=== PATIENT | female | born 1930 | race Caucasian/White ===

== ENCOUNTER 2019-09-05 18:36 | Inpatient (IN) | payer MEDICARE, BC ==
[2019-09-05] VITALS (9 sets, daily range): BP systolic 134–178; BP diastolic 62–83
[~2019-09-05] VITALS: Ht 170.2 cm; Wt 79.4 kg
[~2019-09-05 18:36] MED LIST: AMLO10TA8 PO; APIX5TAB PO; ASCO100019 PO; ASPI-886 PO; CALC500T54 PO; CHOL40003 PO; CLOP75TA PO; METO50TA6 PO; POTASSIUM; TRIA1CAP3 PO; VITA400T6 PO
[2019-09-05] MEDS ORDERED: LACTULOSE 20 GM/30 ML SOLUTION. PO PRN (20:45)
[2019-09-05] MEDS ORDERED: fentaNYL PF VIAL 100 MCG/2 ML VIAL IV PRN ×2 (20:45)
[2019-09-05] MEDS ORDERED: BISACODYL 10 MG SUPP.RECT. PR PRN (20:45)
[2019-09-05] MEDS ORDERED: POLYVINYL ALCOHOL 1.4% OPHTH SOLUTION 15ML BOTTLE. OU PRN (20:45)
[2019-09-05] MEDS ORDERED: ONDANSETRON PF 4 MG/2 ML VIAL. IVP PRN (20:45)
[2019-09-05] MEDS ORDERED: 0.9 % SODIUM CHLORIDE 10 ML DISP.SYRIN. IV PRN (20:45)
[2019-09-05] MEDS: DOCUSATE 100 MG/10 ML SOLUTION. NG SCH (21:00)
[2019-09-05] MEDS: FAMOTIDINE 20 MG TABLET. NG SCH (21:42)
[2019-09-05] MEDS: CHLORHEXIDINE 0.12% 15 ML MOUTHWASH. MM SCH (21:43)
[2019-09-05] MEDS: HEPARIN for SUB-Q USE 5,000 UNIT/ML VIAL. SQ SCH (21:44)
[2019-09-05 21:50] LABS: BASE EXCESS ABG 3 mmol/L (-3-3); HCO3 ABG 27 mmol/L (21-28); PCO2 ABG 40 mmHg (35-46); PO2 ABG 302 mmHg (65-108); SAT O2 ABG 99 % (92-99)
[2019-09-05 21:51] LABS: FIO2 ABG 100
--- NOTE | 2019-09-05 22:51 | NUR ---
Patient transferred from [facility]. For Resp. Failure. patient was getting gas at local gas station. Became SOA- called EMS- upon arrival to ER patietn became unresponsive. Patient intubated and transferred to [place] ER. Accept patient in transfer. On no sedation.
[2019-09-06] VITALS (23 sets, daily range): BP systolic 87–173; BP diastolic 39–90
[2019-09-06] MEDS: PROPOFOL 100 ML IV PRN ×2 (01:25→08:40)
[2019-09-06] MEDS: HEPARIN for SUB-Q USE 5,000 UNIT/ML VIAL. SQ SCH ×3 (05:31→21:20)
[2019-09-06 06:01] LABS: BASO # 0.1 x10^3/uL (0.0-0.2); BASO % 0 % (0-3); EOS % 0 % (0-3); HEMATOCRIT 38.2 % (36.0-47.0); HEMOGLOBIN 12.8 g/dL (12.0-15.5); LYMPH # 2.2 x10^3/uL (1.0-4.8); LYMPH % 15 % (24-48); MEAN CORPUSCULAR HEMOGLOBIN 29 pg (25-35); MEAN CORPUSCULAR HGB CONC 33 g/dL (31-37); MEAN CORPUSCULAR VOLUME 88 fL (79-100); MONO # 1.1 x10^3/uL (0.0-1.1); MONO % 7 % (0-9); NEUT # 11.2 x10^3/uL (1.8-7.7); NEUT % 77 % (31-73); PLATELET COUNT 210 x10^3/uL (140-400); RED BLOOD COUNT 4.37 x10^6/uL (3.50-5.40); RED CELL DISTRIBUTION WIDTH 12.7 % (11.5-14.5); WHITE BLOOD COUNT 14.5 x10^3/uL (4.0-11.0)
[2019-09-06 06:24] LABS: ALBUMIN/GLOBULIN RATIO 0.8 (1.0-1.7); CALCIUM 8.6 mg/dL (8.5-10.1); CREATININE 1.9 mg/dL (0.6-1.0); GFR 24.9; POTASSIUM 3.6 mmol/L (3.5-5.1); TOTAL BILIRUBIN 0.8 mg/dL (0.2-1.0); TOTAL PROTEIN 6.6 g/dL (6.4-8.2)
[2019-09-06] MEDS: ELECTROLYTE (ICU) PROTOCOL. MC SCH (07:20)
[2019-09-06 08:24] LABS: BASE EXCESS ABG 7 mmol/L (-3-3); HCO3 ABG 28 mmol/L (21-28); PCO2 ABG 27 mmHg (35-46); PO2 ABG 67 mmHg (65-108); SAT O2 ABG 95 % (92-99)
[2019-09-06] MEDS: DOCUSATE 100 MG/10 ML SOLUTION. NG SCH ×2 (08:39→20:59)
[2019-09-06] MEDS: CHLORHEXIDINE 0.12% 15 ML MOUTHWASH. MM SCH (08:39)
[2019-09-06] MEDS: FAMOTIDINE 20 MG TABLET. NG SCH ×2 (08:39→20:59)
[2019-09-06 08:45] LABS: FIO2 ABG 40
--- NOTE | 2019-09-06 09:25 | PDOC1 ---
History and Physical Date of Admission Date of Admission DATE: 09/06/19 TIME: 09:19 History of Present Illness History of Present Illness MS. Edwards is an 88-year-old female patient, who was admitted with increasing shortness of breath, dyspnea and distres and was intubated last night in the ER at [facility] she recently underwent left heart catheterization for NSTEMI, and last night had syptoms of exacerbation of CHF She has severe 3-vessel coronary artery disease and atrial fibrillation. Past Medical History Cardiovascular: CAD, CHF, HTN Family History Family History: No Significant Current Medications Current Medications Current Medications Fentanyl Citrate 30 ml @ 0 mls/hr CONT PRN IV SEE PROTOCOL Last administered on 09/05/19at 21:36; Start 09/05/19 at 21:00 Propofol 100 ml @ 0 mls/hr CONT PRN IV SEE PROTOCOL Last administered on 09/06/19at 08:40; Start 09/05/19 at 21:00 Fentanyl Citrate (Fentanyl 2ml Vial) 25 mcg PRN Q1HR PRN IV SEE COMMENTS; Start 09/05/19 at 20:45 Fentanyl Citrate (Fentanyl 2ml Vial) 50 mcg PRN Q1HR PRN IV SEE COMMENTS; Start 09/05/19 at 20:45 Chlorhexidine Gluconate (Peridex) 15 ml BID MM Last administered on 09/06/19at 08:39; Start 09/05/19 at 21:00 Artificial Tears (Artificial Tears) 1 drop PRN Q1HR PRN OU DRY EYE; Start 09/05/19 at 20:45 Famotidine (Pepcid) 20 mg BID NG Last administered on 09/06/19at 08:39; Start 09/05/19 at 21:00 Olanzapine (ZyPREXA ZYDIS) 5 mg PRN Q4HRS PRN PO AGITATION, DELIRIUM; Start 09/05/19 at 20:45 Docusate Sodium (Colace Solution) 100 mg BID NG ; Start 09/05/19 at 21:00 Bisacodyl (Dulcolax Supp) 10 mg PRN DAILY PRN TN CONSTIPATION; Start 09/05/19 at 20:45 Heparin Sodium (Porcine) (Heparin Sodium) 5,000 unit Q8HRS SQ Last administered on 09/06/19at 05:31; Start 09/05/19 at 22:00 Ondansetron HCl (Zofran) 4 mg PRN Q6HRS PRN IVP NAUSEA/VOMITING; Start 09/05/19 at 20:45 Info (Icu Electrolyte Protocol) 1 ea DAILY MC ; Start 09/06/19 at 09:00 Sodium Chloride (Normal Saline Flush) 3 ml QSHIFT PRN IV AFTER MEDS AND BLOOD DRAWS; Start 09/05/19 at 20:45 Lactulose (Lactulose) 20 gm PRN Q12HR PRN PO CONSTIPATION; Start 09/05/19 at 20:45 Active Scripts Active Clopidogrel (Clopidogrel Bisulfate) 75 Mg Tablet 1 Tab PO DAILY 30 Days Amlodipine Besylate 10 Mg Tablet 10 Mg PO DAILY 30 Days Metoprolol Tartrate 50 Mg Tablet 1 Tab PO BID 30 Days Reported [Potassium] 550 Mg DAILY Vitamin E (Vitamin E Mixed) 400 Unit Tablet 1 Tab PO DAILY 30 Days Triamterene-Hctz 37.5-25 Mg Cp (Triamterene/Hydrochlorothiazid) 1 Each Capsule 1 Cap PO DAILY Aspirin Ec (Aspirin) 81 Mg Tablet.dr 2 Tab PO BID Calcium (Calcium Carbonate) 500 Mg Tab.chew 500 Mg PO DAILY Vitamin C (Ascorbic Acid) 1,000 Mg Tablet 1,000 Mg PO DAILY Vitamin D3 (Cholecalciferol (Vitamin D3)) 4,000 Unit Capsule 0.5 Cap PO DAILY 30 Days Allergies Allergies: Coded Allergies: morphine (Verified Allergy, Intermediate, 09/06/19) codeine (Verified Adverse Reaction, Intermediate, Nausea, 04/21/19) ROS Review of System pt intubated, sedated, in isolation for COVID rule out Physical Exam Physical Exam PHYSICAL EXAMINATION: intubated, sedated GENERAL: No jugular venous distention. No limb edema. HEAD, EYES, EARS, NOSE AND THROAT: Showed normocephalic, atraumatic. NECK: Supple. HEART: reg, no pulse deficit, rate 72 No gallop or murmur. CHEST: Clear to auscultation. No crepitation or rhonchi. ABDOMEN: Distended, soft, nontender. NEUROLOGIC: sedated Vitals Vitals Vital Signs Date Time Temp Pulse Resp B/P (MAP) Pulse Ox O2 Delivery O2 Flow Rate FiO2 09/06/19 09:00 74 16 141/66 (91) 99 Ventilator 09/06/19 08:00 99.5 99.5 09/06/19 04:00 100.0 Labs Labs Laboratory Tests Test 09/05/19 21:37 09/06/19 05:30 09/06/19 07:30 O2 Saturation 99 % (92-99) 95 % (92-99) Arterial Blood pH 7.45 (7.35-7.45) 7.62 (7.35-7.45) Arterial Blood pCO2 at Patient Temp 40 mmHg (35-46) 27 mmHg (35-46) Arterial Blood pO2 at Patient Temp 302 mmHg (65-108) 67 mmHg (65-108) Arterial Blood HCO3 27 mmol/L (21-28) 28 mmol/L (21-28) Arterial Blood Base Excess 3 mmol/L (-3-3) 7 mmol/L (-3-3) FiO2 100 40 White Blood Count 14.5 x10^3/uL (4.0-11.0) Red Blood Count 4.37 x10^6/uL (3.50-5.40) Hemoglobin 12.8 g/dL (12.0-15.5) Hematocrit 38.2 % (36.0-47.0) Mean Corpuscular Volume 88 fL (79-100) Mean Corpuscular Hemoglobin 29 pg (25-35) Mean Corpuscular Hemoglobin Concent 33 g/dL (31-37) Red Cell Distribution Width 12.7 % (11.5-14.5) Platelet Count 210 x10^3/uL (140-400) Neutrophils (%) (Auto) 77 % (31-73) Lymphocytes (%) (Auto) 15 % (24-48) Monocytes (%) (Auto) 7 % (0-9) Eosinophils (%) (Auto) 0 % (0-3) Basophils (%) (Auto) 0 % (0-3) Neutrophils # (Auto) 11.2 x10^3/uL (1.8-7.7) Lymphocytes # (Auto) 2.2 x10^3/uL (1.0-4.8) Monocytes # (Auto) 1.1 x10^3/uL (0.0-1.1) Eosinophils # (Auto) 0.0 x10^3/uL (0.0-0.7) Basophils # (Auto) 0.1 x10^3/uL (0.0-0.2) Sodium Level 140 mmol/L (136-145) Potassium Level 3.6 mmol/L (3.5-5.1) Chloride Level 100 mmol/L (98-107) Carbon Dioxide Level 31 mmol/L (21-32) Anion Gap 9 (6-14) Blood Urea Nitrogen 32 mg/dL (7-20) Creatinine 1.9 mg/dL (0.6-1.0) Estimated GFR (Cockcroft-Gault) 24.9 BUN/Creatinine Ratio 17 (6-20) Glucose Level 148 mg/dL (70-99) Calcium Level 8.6 mg/dL (8.5-10.1) Total Bilirubin 0.8 mg/dL (0.2-1.0) Aspartate Amino Transf (AST/SGOT) 86 U/L (15-37) Alanine Aminotransferase (ALT/SGPT) 24 U/L (14-59) Alkaline Phosphatase 40 U/L (46-116) Total Protein 6.6 g/dL (6.4-8.2) Albumin 3.0 g/dL (3.4-5.0) Albumin/Globulin Ratio 0.8 (1.0-1.7) Laboratory Tests Test 09/05/19 21:37 09/06/19 05:30 09/06/19 07:30 O2 Saturation 99 % (92-99) 95 % (92-99) Arterial Blood pH 7.45 (7.35-7.45) 7.62 (7.35-7.45) Arterial Blood pCO2 at Patient Temp 40 mmHg (35-46) 27 mmHg (35-46) Arterial Blood pO2 at Patient Temp 302 mmHg (65-108) 67 mmHg (65-108) Arterial Blood HCO3 27 mmol/L (21-28) 28 mmol/L (21-28) Arterial Blood Base Excess 3 mmol/L (-3-3) 7 mmol/L (-3-3) FiO2 100 40 White Blood Count 14.5 x10^3/uL (4.0-11.0) Red Blood Count 4.37 x10^6/uL (3.50-5.40) Hemoglobin 12.8 g/dL (12.0-15.5) Hematocrit 38.2 % (36.0-47.0) Mean Corpuscular Volume 88 fL (79-100) Mean Corpuscular Hemoglobin 29 pg (25-35) Mean Corpuscular Hemoglobin Concent 33 g/dL (31-37) Red Cell Distribution Width 12.7 % (11.5-14.5) Platelet Count 210 x10^3/uL (140-400) Neutrophils (%) (Auto) 77 % (31-73) Lymphocytes (%) (Auto) 15 % (24-48) Monocytes (%) (Auto) 7 % (0-9) Eosinophils (%) (Auto) 0 % (0-3) Basophils (%) (Auto) 0 % (0-3) Neutrophils # (Auto) 11.2 x10^3/uL (1.8-7.7) Lymphocytes # (Auto) 2.2 x10^3/uL (1.0-4.8) Monocytes # (Auto) 1.1 x10^3/uL (0.0-1.1) Eosinophils # (Auto) 0.0 x10^3/uL (0.0-0.7) Basophils # (Auto) 0.1 x10^3/uL (0.0-0.2) Sodium Level 140 mmol/L (136-145) Potassium Level 3.6 mmol/L (3.5-5.1) Chloride Level 100 mmol/L (98-107) Carbon Dioxide Level 31 mmol/L (21-32) Anion Gap 9 (6-14) Blood Urea Nitrogen 32 mg/dL (7-20) Creatinine 1.9 mg/dL (0.6-1.0) Estimated GFR (Cockcroft-Gault) 24.9 BUN/Creatinine Ratio 17 (6-20) Glucose Level 148 mg/dL (70-99) Calcium Level 8.6 mg/dL (8.5-10.1) Total Bilirubin 0.8 mg/dL (0.2-1.0) Aspartate Amino Transf (AST/SGOT) 86 U/L (15-37) Alanine Aminotransferase (ALT/SGPT) 24 U/L (14-59) Alkaline Phosphatase 40 U/L (46-116) Total Protein 6.6 g/dL (6.4-8.2) Albumin 3.0 g/dL (3.4-5.0) Albumin/Globulin Ratio 0.8 (1.0-1.7) VTE Prophylaxis Ordered VTE Prophylaxis Devices: Yes VTE Pharmacological Prophylaxi: Yes Assessment/Plan Assessment/Plan acute hypoxic respiratory failure acute systolic CHF, CAD, recent cardiac cath, and severe three-vessel disease. she declined intervention htn, lipids afib, currently in sinus pt was intubated, has prior DNR order, will try to wean, second ABG looks much better, some alkalosis, discussed with RT Justicifation of Admission Dx: Justifications for Admission: Justification of Admission Dx: Yes Comments: intubated in ER, transfer GUIDO QUIÑONES MD Sep 06, 2019 09:25
--- NOTE | 2019-09-06 11:10 | NUR ---
SS following up with discharge planning. SS reviewed pt chart and discussed with pt RN. Pt is from home and is currently on the vent. Pt transferred from [facility]. Pt is COVID19 pending. Pt now DNR/DNI. Pt's daughter in law wanting placement when medically stable. PT/OT ordered. SS will continue to follow for discharge planning.
--- NOTE | 2019-09-06 11:48 | PDOC2 ---
[facility] REL[employer] DIRECT[employer] 09/06/19 1148: CARDIAC CONSULT DATE OF CONSULT Date of Consult DATE: 09/06/19 TIME: 11:47 REASON FOR CONSULT Reason for Consult: CHF, CAD REFERRING PHYSICIAN Referring Physician: Dr. Bolton SOURCE Source: Chart review, Patient HISTORY OF PRESENT ILLNESS HISTORY OF PRESENT ILLNESS This is an 89 yo female who initially presented to [facility] secondary to shortness of breath. Was intubated in ED due to respiratory distress and transferred to [facility] for further evaluation and treatment. Was reportedly found in her car at the grocery store and EMS was called. Was noted to be significantly hypoxic upon EMS arrival. PAST MEDICAL HISTORY Cardiovascular: AFIB, CAD, HTN, Hyperlipidemia CENTRAL NERVOUS SYSTEM: CVA Musculoskeletal: Osteoarthritis PAST SURGICAL HISTORY Past Surgical History: No pertinent history FAMILY HISTORY Family History: Other (noncontributory to age) SOCIAL HISTORY ALCOHOL: none Drugs: None Lives: with Family CURRENT MEDICATIONS CURRENT MEDICATIONS Current Medications Medications (Trade) Dose Ordered Sig/Hattie Route PRN Reason Start Time Stop Time Status Last Admin Dose Admin Fentanyl Citrate 30 ml @ 0 mls/hr CONT PRN IV SEE PROTOCOL 09/05/19 21:00 09/05/19 21:36 Propofol 100 ml @ 0 mls/hr CONT PRN IV SEE PROTOCOL 09/05/19 21:00 09/06/19 08:40 Chlorhexidine Gluconate (Peridex) 15 ml BID MM 09/05/19 21:00 09/06/19 08:39 Famotidine (Pepcid) 20 mg BID NG 09/05/19 21:00 09/06/19 09:47 DC 09/06/19 08:39 Heparin Sodium (Porcine) (Heparin Sodium) 5,000 unit Q8HRS SQ 09/05/19 22:00 09/06/19 05:31 ALLERGIES ALLERGIES: Coded Allergies: morphine (Verified Allergy, Intermediate, 09/06/19) codeine (Verified Adverse Reaction, Intermediate, Nausea, 04/21/19) ROS Review of System unobtainable PHYSICAL EXAM General: Other (intubated/sedated) Lungs: Other (mechanical vent ) Heart: Regular rate Abdomen: Soft Extremities: Other (trace LE edema ) Neuro: Other (sedated) MUSCULOSKELETAL: Osteoarthritic changes both hands VITALS/I&O VITALS/I&O: Vital Signs Date Time Temp Pulse Resp B/P (MAP) Pulse Ox O2 Delivery O2 Flow Rate FiO2 09/06/19 11:36 100 Ventilator 09/06/19 11:00 72 12 87/42 (57) 09/06/19 08:00 99.5 99.5 09/06/19 04:00 100.0 I & O 09/05/19 09/05/19 09/06/19 15:00 23:00 07:00 Intake Total 95.8 ml Output Total 200 ml 750 ml Balance -200 ml -654.2 ml LABS Lab: Laboratory Tests Test 09/05/19 21:37 09/06/19 05:30 09/06/19 07:30 O2 Saturation 99 % (92-99) 95 % (92-99) Arterial Blood pH 7.45 (7.35-7.45) 7.62 (7.35-7.45) *H Arterial Blood pCO2 at Patient Temp 40 mmHg (35-46) 27 mmHg (35-46) L Arterial Blood pO2 at Patient Temp 302 mmHg (65-108) H 67 mmHg (65-108) Arterial Blood HCO3 27 mmol/L (21-28) 28 mmol/L (21-28) Arterial Blood Base Excess 3 mmol/L (-3-3) 7 mmol/L (-3-3) H FiO2 100 40 White Blood Count 14.5 x10^3/uL (4.0-11.0) H Red Blood Count 4.37 x10^6/uL (3.50-5.40) Hemoglobin 12.8 g/dL (12.0-15.5) Hematocrit 38.2 % (36.0-47.0) Mean Corpuscular Volume 88 fL (79-100) Mean Corpuscular Hemoglobin 29 pg (25-35) Mean Corpuscular Hemoglobin Concent 33 g/dL (31-37) Red Cell Distribution Width 12.7 % (11.5-14.5) Platelet Count 210 x10^3/uL (140-400) Neutrophils (%) (Auto) 77 % (31-73) H Lymphocytes (%) (Auto) 15 % (24-48) L Monocytes (%) (Auto) 7 % (0-9) Eosinophils (%) (Auto) 0 % (0-3) Basophils (%) (Auto) 0 % (0-3) Neutrophils # (Auto) 11.2 x10^3/uL (1.8-7.7) H Lymphocytes # (Auto) 2.2 x10^3/uL (1.0-4.8) Monocytes # (Auto) 1.1 x10^3/uL (0.0-1.1) Eosinophils # (Auto) 0.0 x10^3/uL (0.0-0.7) Basophils # (Auto) 0.1 x10^3/uL (0.0-0.2) Sodium Level 140 mmol/L (136-145) Potassium Level 3.6 mmol/L (3.5-5.1) Chloride Level 100 mmol/L (98-107) Carbon Dioxide Level 31 mmol/L (21-32) Anion Gap 9 (6-14) Blood Urea Nitrogen 32 mg/dL (7-20) H Creatinine 1.9 mg/dL (0.6-1.0) H Estimated GFR (Cockcroft-Gault) 24.9 BUN/Creatinine Ratio 17 (6-20) Glucose Level 148 mg/dL (70-99) H Calcium Level 8.6 mg/dL (8.5-10.1) Total Bilirubin 0.8 mg/dL (0.2-1.0) Aspartate Amino Transferase (AST) 86 U/L (15-37) H Alanine Aminotransferase (ALT) 24 U/L (14-59) Alkaline Phosphatase 40 U/L (46-116) L Total Protein 6.6 g/dL (6.4-8.2) Albumin 3.0 g/dL (3.4-5.0) L Albumin/Globulin Ratio 0.8 (1.0-1.7) L Laboratory Tests 09/06/19 05:30 Laboratory Tests 09/06/19 05:30 HEART CATH HEART CATH CORONARY ANGIOGRAPHY: LM is a moderate caliber vessel with probable diffuse 30% stenossi. LAD is a moderate caliber vessel with an eccentric ostial 70% stenosis. LCx is a moderate caliber non-dominant vessel with an ostial 50% stenosis and a mid 80% stenosis. OM1 is a moderate caliber vessel with a mid 80% stenosis. RCA is a large caliber dominant vessel with mild diffuse irregularities. RPDA is a small caliber vessel with a long proximal to distal 80% stenosis. RPL is a moderate caliber vessel with normal angiographic appearance. Conclusion 1. Normal left sided filling pressures. 2. Severe three vessel coronary disease. 3. Atrial fibrillation Recommendations 1. Plan for aggressive medical therapy/optimization and discuss with patient and family regarding conservative mgmt of NSTEMI versus high risk PCI. DATE: 04/21/19 1204 ASSESSMENT/PLAN ASSESSMENT/PLAN 1. Acute respiratory failure; s/p intubation. COVID pending. low-grade fevers 2. Acute on chronic diastolic CHF; flash pulm edema due to hypertensive urgency vs severe CAD 3. Hypertensive urgency upon arrival; now low end 4. CAD; 3VD noted per [facility] 04/21. Patient opted for medical management 5. Leukocytosis, lactic acidosis 6. Mild trop elevation; initial 0.18 7. Hyperlipidemia 8. SUSANNAH on CKD 9. PAFIB; maintaining SR Recommendations Mild diuresis with monitoring of renal function Resume secondary prevention as able Trend trop Echo to assess LV systolic function if COVID negative Patient with severe 3VD. Will need to discuss with family treatment options of high-risk PCI versus medical management. If patient/family would like to continued with medical management, would recommend Hospice upon discharge NYA JUDD MD 09/06/19 1548: CARDIAC CONSULT Attending Signature Patient seen and examined. Agree with above nurse practitioner note. 89-year-old woman well-known to our service. Previously underwent cardiac catheterization now presenting with acute flash pulmonary edema likely secondary to hypertensive urgency Case was discussed with the power of bosom presser for the patient and they would like conservative management only. Continue medical therapy. Supportive care. No further indications for aggressive treatment. ZHANNA JEFFERS APRN Sep 06, 2019 11:48 NYA JUDD MD Sep 06, 2019 15:48
[2019-09-06] MEDS ORDERED: FUROSEMIDE 20 MG/2 ML VIAL. IVP ONE (14:30)
--- NOTE | 2019-09-06 15:00 | NUR ---
Wound Care: Pt undergoing extubation, wound care will follow up tomorrow for wound screen consult.
--- NOTE | 2019-09-06 16:10 | PDOC ---
PULMONARY PROGRESS NOTES Vitals Vital Signs Date Time Temp Pulse Resp B/P (MAP) Pulse Ox O2 Delivery O2 Flow Rate FiO2 09/06/19 15:05 Nasal Cannula 4.0 09/06/19 15:00 96 33 164/63 (96) 98 09/06/19 12:00 99.9 99.9 Labs Laboratory Tests Test 09/05/19 21:37 09/06/19 05:30 09/06/19 07:30 O2 Saturation 99 % (92-99) 95 % (92-99) Arterial Blood pH 7.45 (7.35-7.45) 7.62 (7.35-7.45) Arterial Blood pCO2 at Patient Temp 40 mmHg (35-46) 27 mmHg (35-46) Arterial Blood pO2 at Patient Temp 302 mmHg (65-108) 67 mmHg (65-108) Arterial Blood HCO3 27 mmol/L (21-28) 28 mmol/L (21-28) Arterial Blood Base Excess 3 mmol/L (-3-3) 7 mmol/L (-3-3) FiO2 100 40 White Blood Count 14.5 x10^3/uL (4.0-11.0) Red Blood Count 4.37 x10^6/uL (3.50-5.40) Hemoglobin 12.8 g/dL (12.0-15.5) Hematocrit 38.2 % (36.0-47.0) Mean Corpuscular Volume 88 fL (79-100) Mean Corpuscular Hemoglobin 29 pg (25-35) Mean Corpuscular Hemoglobin Concent 33 g/dL (31-37) Red Cell Distribution Width 12.7 % (11.5-14.5) Platelet Count 210 x10^3/uL (140-400) Neutrophils (%) (Auto) 77 % (31-73) Lymphocytes (%) (Auto) 15 % (24-48) Monocytes (%) (Auto) 7 % (0-9) Eosinophils (%) (Auto) 0 % (0-3) Basophils (%) (Auto) 0 % (0-3) Neutrophils # (Auto) 11.2 x10^3/uL (1.8-7.7) Lymphocytes # (Auto) 2.2 x10^3/uL (1.0-4.8) Monocytes # (Auto) 1.1 x10^3/uL (0.0-1.1) Eosinophils # (Auto) 0.0 x10^3/uL (0.0-0.7) Basophils # (Auto) 0.1 x10^3/uL (0.0-0.2) Sodium Level 140 mmol/L (136-145) Potassium Level 3.6 mmol/L (3.5-5.1) Chloride Level 100 mmol/L (98-107) Carbon Dioxide Level 31 mmol/L (21-32) Anion Gap 9 (6-14) Blood Urea Nitrogen 32 mg/dL (7-20) Creatinine 1.9 mg/dL (0.6-1.0) Estimated GFR (Cockcroft-Gault) 24.9 BUN/Creatinine Ratio 17 (6-20) Glucose Level 148 mg/dL (70-99) Calcium Level 8.6 mg/dL (8.5-10.1) Total Bilirubin 0.8 mg/dL (0.2-1.0) Aspartate Amino Transf (AST/SGOT) 86 U/L (15-37) Alanine Aminotransferase (ALT/SGPT) 24 U/L (14-59) Alkaline Phosphatase 40 U/L (46-116) Troponin I Quantitative 20.161 ng/mL (0.000-0.055) Total Protein 6.6 g/dL (6.4-8.2) Albumin 3.0 g/dL (3.4-5.0) Albumin/Globulin Ratio 0.8 (1.0-1.7) Laboratory Tests Test 09/05/19 21:37 09/06/19 05:30 09/06/19 07:30 O2 Saturation 99 % (92-99) 95 % (92-99) Arterial Blood pH 7.45 (7.35-7.45) 7.62 (7.35-7.45) Arterial Blood pCO2 at Patient Temp 40 mmHg (35-46) 27 mmHg (35-46) Arterial Blood pO2 at Patient Temp 302 mmHg (65-108) 67 mmHg (65-108) Arterial Blood HCO3 27 mmol/L (21-28) 28 mmol/L (21-28) Arterial Blood Base Excess 3 mmol/L (-3-3) 7 mmol/L (-3-3) FiO2 100 40 White Blood Count 14.5 x10^3/uL (4.0-11.0) Red Blood Count 4.37 x10^6/uL (3.50-5.40) Hemoglobin 12.8 g/dL (12.0-15.5) Hematocrit 38.2 % (36.0-47.0) Mean Corpuscular Volume 88 fL (79-100) Mean Corpuscular Hemoglobin 29 pg (25-35) Mean Corpuscular Hemoglobin Concent 33 g/dL (31-37) Red Cell Distribution Width 12.7 % (11.5-14.5) Platelet Count 210 x10^3/uL (140-400) Neutrophils (%) (Auto) 77 % (31-73) Lymphocytes (%) (Auto) 15 % (24-48) Monocytes (%) (Auto) 7 % (0-9) Eosinophils (%) (Auto) 0 % (0-3) Basophils (%) (Auto) 0 % (0-3) Neutrophils # (Auto) 11.2 x10^3/uL (1.8-7.7) Lymphocytes # (Auto) 2.2 x10^3/uL (1.0-4.8) Monocytes # (Auto) 1.1 x10^3/uL (0.0-1.1) Eosinophils # (Auto) 0.0 x10^3/uL (0.0-0.7) Basophils # (Auto) 0.1 x10^3/uL (0.0-0.2) Sodium Level 140 mmol/L (136-145) Potassium Level 3.6 mmol/L (3.5-5.1) Chloride Level 100 mmol/L (98-107) Carbon Dioxide Level 31 mmol/L (21-32) Anion Gap 9 (6-14) Blood Urea Nitrogen 32 mg/dL (7-20) Creatinine 1.9 mg/dL (0.6-1.0) Estimated GFR (Cockcroft-Gault) 24.9 BUN/Creatinine Ratio 17 (6-20) Glucose Level 148 mg/dL (70-99) Calcium Level 8.6 mg/dL (8.5-10.1) Total Bilirubin 0.8 mg/dL (0.2-1.0) Aspartate Amino Transf (AST/SGOT) 86 U/L (15-37) Alanine Aminotransferase (ALT/SGPT) 24 U/L (14-59) Alkaline Phosphatase 40 U/L (46-116) Troponin I Quantitative 20.161 ng/mL (0.000-0.055) Total Protein 6.6 g/dL (6.4-8.2) Albumin 3.0 g/dL (3.4-5.0) Albumin/Globulin Ratio 0.8 (1.0-1.7) Medications Active Scripts Medications Dose Route/Sig Max Daily Dose Days Date Category Clopidogrel (Clopidogrel Bisulfate) 75 Mg Tablet 1 Tab PO DAILY 04/23/19 Rx Amlodipine Besylate 10 Mg Tablet 10 Mg PO DAILY 30 04/23/19 Rx Metoprolol Tartrate 50 Mg Tablet 1 Tab PO BID 30 04/23/19 Rx [Potassium] 550 Mg DAILY 04/22/19 Reported Vitamin E (Vitamin E Mixed) 400 Unit Tablet 1 Tab PO DAILY 30 04/22/19 Reported Triamterene-Hctz 37.5-25 Mg Cp (Triamterene/Hydrochlorothiazid) 1 Each Capsule 1 Cap PO DAILY 04/22/19 Reported Aspirin Ec (Aspirin) 81 Mg Tablet.dr 2 Tab PO BID 04/22/19 Reported Calcium (Calcium Carbonate) 500 Mg Tab.chew 500 Mg PO DAILY 04/21/19 Reported Vitamin C (Ascorbic Acid) 1,000 Mg Tablet 1,000 Mg PO DAILY 04/21/19 Reported Vitamin D3 (Cholecalciferol (Vitamin D3)) 4,000 Unit Capsule 0.5 Cap PO DAILY 30 04/21/19 Reported Impression . Full note dictated, continue aggressive care for now, discussed with RN, reportedly the patient has an advanced directive and did not want to be intubated CATE SMART MD Sep 06, 2019 16:10
--- NOTE | 2019-09-06 20:42 | CONS ---
DATE OF CONSULTATION: 09/06/2019 ATTENDING PHYSICIAN: Jazmin Dove MD. HISTORY OF PRESENT ILLNESS: The patient is an 89-year-old that has underlying coronary artery disease. On angiogram during her last admission, she has severe coronary artery disease that was being medically management. She presented to [facility] secondary to shortness of breath. She was intubated in the Emergency Department and transferred to [facility]. Reportedly, the patient was found to the car to the grocery store. EMS was summoned. They found her severely hypoxic. Chest x-ray was reviewed. There is bilateral pulmonary infiltrates compatible with acute pulmonary edema. The nurse informed me that the patient has a do not resuscitate advanced directive, I do not think that she wanted to be intubated. We are in the process of clarifying that. PAST MEDICAL HISTORY: Chronic heart failure, coronary artery disease with previous angiogram revealing severe 3-vessel coronary artery disease, hyperlipidemia, hypertension, CVA, osteoarthritis, AFib. PAST SURGICAL HISTORY: No recent major surgeries. FAMILY HISTORY: Noncontributory in this age group. SOCIAL HISTORY: There is no history of alcoholism or tobaccoism. REVIEW OF SYSTEMS: Unobtainable secondary to the patient's condition. PHYSICAL EXAMINATION: GENERAL: The patient was on mechanical ventilation. Arterial blood gas was reviewed. She was slightly up. She was alkalotic. Adjustments with mini ventilation took place earlier today. HEENT: Eyes, the sclerae were nonicteric. NECK: Jugular venous distention could not be assessed. CHEST: Full expansion. LUNGS: Adequate flow with no wheezes. CARDIOVASCULAR: Regular rate and rhythm with S1 and S2, no S3. ABDOMEN: Soft, nontender, nondistended. EXTREMITIES: No clubbing, cyanosis or edema. LABORATORY DATA: Arterial blood gas; pH of 7.62, PaCO2 of 27. White count was elevated. Hemoglobin and hematocrit were noted. BUN and creatinine were elevated. Chest x-ray revealed bilateral pulmonary infiltrates compatible with pulmonary edema. IMPRESSION: 1. Acute hypoxemic respiratory failure. 2. [id number] systolic and diastolic heart failure. 3. Coronary artery disease with severe coronary artery bypass grafting. 4. Hypertension. 5. Chronic atrial fibrillation. 6. Leukocytosis. 7. Elevated troponin level, possible non-ST segment elevation myocardial infarction. PLAN: 1. As indicated above, apparently, the patient had an advanced directive. She did not want to be intubated. We will proceed with continued aggressive care. 2. RN is to get in touch with family. I believe that the patient's family wishes to possibly discontinue support and allowing natural . 3. Follow Cardiology input. 4. Diurese. 5. No need for antibiotics for leukocytosis and lactic acidosis related to increased work of breathing. I do appreciate the privilege in sharing in the patient's care. Total cumulative critical care time of 45 minutes reviewing data, chest x-ray, labs, old records, and formulate in the plan. CATE SMART MD DR: AMANDA/farida JOB#: [id number] / [id number]
[2019-09-06] MEDS: METOPROLOL TART IMMED RELEASE 50 MG TABLET. PO SCH (21:00)
[2019-09-06] MEDS: ASPIRIN ENTERIC COATED 81 MG TABLET.DR. PO SCH (21:00)
[2019-09-07] VITALS (19 sets, daily range): BP systolic 115–189; BP diastolic 42–75
[2019-09-07 06:13] LABS: BASO # 0.1 x10^3/uL (0.0-0.2); BASO % 0 % (0-3); EOS # 0.1 x10^3/uL (0.0-0.7); EOS % 1 % (0-3); HEMATOCRIT 36.7 % (36.0-47.0); HEMOGLOBIN 12.2 g/dL (12.0-15.5); LYMPH # 2.8 x10^3/uL (1.0-4.8); LYMPH % 24 % (24-48); MEAN CORPUSCULAR HEMOGLOBIN 29 pg (25-35); MEAN CORPUSCULAR HGB CONC 33 g/dL (31-37); MEAN CORPUSCULAR VOLUME 88 fL (79-100); MONO # 1.1 x10^3/uL (0.0-1.1); MONO % 10 % (0-9); NEUT # 7.3 x10^3/uL (1.8-7.7); NEUT % 65 % (31-73); PLATELET COUNT 187 x10^3/uL (140-400); RED BLOOD COUNT 4.15 x10^6/uL (3.50-5.40); RED CELL DISTRIBUTION WIDTH 12.7 % (11.5-14.5); WHITE BLOOD COUNT 11.4 x10^3/uL (4.0-11.0)
[2019-09-07 06:34] LABS: ALBUMIN/GLOBULIN RATIO 0.8 (1.0-1.7); CALCIUM 8.3 mg/dL (8.5-10.1); CREATININE 1.8 mg/dL (0.6-1.0); GFR 26.6; TOTAL BILIRUBIN 0.9 mg/dL (0.2-1.0); TOTAL PROTEIN 6.6 g/dL (6.4-8.2)
[2019-09-07 06:37] LABS: POTASSIUM 2.8 mmol/L (3.5-5.1)
[2019-09-07] MEDS ORDERED: POTASSIUM CHLORIDE 20 MEQ TABLET.ER. PO ONE (07:30)
[2019-09-07] MEDS: ELECTROLYTE (ICU) PROTOCOL. MC SCH (07:39)
--- NOTE | 2019-09-07 08:38 | PDOC ---
PULMONARY PROGRESS NOTES Subjective Patient not more short of air, no chest pain no pressure some back Vitals Vital Signs Date Time Temp Pulse Resp B/P (MAP) Pulse Ox O2 Delivery O2 Flow Rate FiO2 09/07/19 07:00 73 15 133/61 (85) 99 Nasal Cannula 4.0 09/07/19 06:00 98.6 98.6 ROS: No Nausea, No Chest Pain, No Abdominal Pain, No Increase Cough Lungs: Clear Cardiovascular: S1, S2 Abdomen: Soft Neuro Exam: Alert Extremities: No Edema Skin: Warm Labs Laboratory Tests Test 09/05/19 21:37 09/06/19 05:30 09/06/19 07:30 09/07/19 05:30 O2 Saturation 99 % (92-99) 95 % (92-99) Arterial Blood pH 7.45 (7.35-7.45) 7.62 (7.35-7.45) Arterial Blood pCO2 at Patient Temp 40 mmHg (35-46) 27 mmHg (35-46) Arterial Blood pO2 at Patient Temp 302 mmHg (65-108) 67 mmHg (65-108) Arterial Blood HCO3 27 mmol/L (21-28) 28 mmol/L (21-28) Arterial Blood Base Excess 3 mmol/L (-3-3) 7 mmol/L (-3-3) FiO2 100 40 White Blood Count 14.5 x10^3/uL (4.0-11.0) 11.4 x10^3/uL (4.0-11.0) Red Blood Count 4.37 x10^6/uL (3.50-5.40) 4.15 x10^6/uL (3.50-5.40) Hemoglobin 12.8 g/dL (12.0-15.5) 12.2 g/dL (12.0-15.5) Hematocrit 38.2 % (36.0-47.0) 36.7 % (36.0-47.0) Mean Corpuscular Volume 88 fL (79-100) 88 fL (79-100) Mean Corpuscular Hemoglobin 29 pg (25-35) 29 pg (25-35) Mean Corpuscular Hemoglobin Concent 33 g/dL (31-37) 33 g/dL (31-37) Red Cell Distribution Width 12.7 % (11.5-14.5) 12.7 % (11.5-14.5) Platelet Count 210 x10^3/uL (140-400) 187 x10^3/uL (140-400) Neutrophils (%) (Auto) 77 % (31-73) 65 % (31-73) Lymphocytes (%) (Auto) 15 % (24-48) 24 % (24-48) Monocytes (%) (Auto) 7 % (0-9) 10 % (0-9) Eosinophils (%) (Auto) 0 % (0-3) 1 % (0-3) Basophils (%) (Auto) 0 % (0-3) 0 % (0-3) Neutrophils # (Auto) 11.2 x10^3/uL (1.8-7.7) 7.3 x10^3/uL (1.8-7.7) Lymphocytes # (Auto) 2.2 x10^3/uL (1.0-4.8) 2.8 x10^3/uL (1.0-4.8) Monocytes # (Auto) 1.1 x10^3/uL (0.0-1.1) 1.1 x10^3/uL (0.0-1.1) Eosinophils # (Auto) 0.0 x10^3/uL (0.0-0.7) 0.1 x10^3/uL (0.0-0.7) Basophils # (Auto) 0.1 x10^3/uL (0.0-0.2) 0.1 x10^3/uL (0.0-0.2) Sodium Level 140 mmol/L (136-145) 142 mmol/L (136-145) Potassium Level 3.6 mmol/L (3.5-5.1) 2.8 mmol/L (3.5-5.1) Chloride Level 100 mmol/L (98-107) 100 mmol/L (98-107) Carbon Dioxide Level 31 mmol/L (21-32) 34 mmol/L (21-32) Anion Gap 9 (6-14) 8 (6-14) Blood Urea Nitrogen 32 mg/dL (7-20) 33 mg/dL (7-20) Creatinine 1.9 mg/dL (0.6-1.0) 1.8 mg/dL (0.6-1.0) Estimated GFR (Cockcroft-Gault) 24.9 26.6 BUN/Creatinine Ratio 17 (6-20) 18 (6-20) Glucose Level 148 mg/dL (70-99) 122 mg/dL (70-99) Calcium Level 8.6 mg/dL (8.5-10.1) 8.3 mg/dL (8.5-10.1) Total Bilirubin 0.8 mg/dL (0.2-1.0) 0.9 mg/dL (0.2-1.0) Aspartate Amino Transf (AST/SGOT) 86 U/L (15-37) 55 U/L (15-37) Alanine Aminotransferase (ALT/SGPT) 24 U/L (14-59) 20 U/L (14-59) Alkaline Phosphatase 40 U/L (46-116) 40 U/L (46-116) Troponin I Quantitative 20.161 ng/mL (0.000-0.055) Total Protein 6.6 g/dL (6.4-8.2) 6.6 g/dL (6.4-8.2) Albumin 3.0 g/dL (3.4-5.0) 3.0 g/dL (3.4-5.0) Albumin/Globulin Ratio 0.8 (1.0-1.7) 0.8 (1.0-1.7) Laboratory Tests Test 09/07/19 05:30 White Blood Count 11.4 x10^3/uL (4.0-11.0) Red Blood Count 4.15 x10^6/uL (3.50-5.40) Hemoglobin 12.2 g/dL (12.0-15.5) Hematocrit 36.7 % (36.0-47.0) Mean Corpuscular Volume 88 fL (79-100) Mean Corpuscular Hemoglobin 29 pg (25-35) Mean Corpuscular Hemoglobin Concent 33 g/dL (31-37) Red Cell Distribution Width 12.7 % (11.5-14.5) Platelet Count 187 x10^3/uL (140-400) Neutrophils (%) (Auto) 65 % (31-73) Lymphocytes (%) (Auto) 24 % (24-48) Monocytes (%) (Auto) 10 % (0-9) Eosinophils (%) (Auto) 1 % (0-3) Basophils (%) (Auto) 0 % (0-3) Neutrophils # (Auto) 7.3 x10^3/uL (1.8-7.7) Lymphocytes # (Auto) 2.8 x10^3/uL (1.0-4.8) Monocytes # (Auto) 1.1 x10^3/uL (0.0-1.1) Eosinophils # (Auto) 0.1 x10^3/uL (0.0-0.7) Basophils # (Auto) 0.1 x10^3/uL (0.0-0.2) Sodium Level 142 mmol/L (136-145) Potassium Level 2.8 mmol/L (3.5-5.1) Chloride Level 100 mmol/L (98-107) Carbon Dioxide Level 34 mmol/L (21-32) Anion Gap 8 (6-14) Blood Urea Nitrogen 33 mg/dL (7-20) Creatinine 1.8 mg/dL (0.6-1.0) Estimated GFR (Cockcroft-Gault) 26.6 BUN/Creatinine Ratio 18 (6-20) Glucose Level 122 mg/dL (70-99) Calcium Level 8.3 mg/dL (8.5-10.1) Total Bilirubin 0.9 mg/dL (0.2-1.0) Aspartate Amino Transf (AST/SGOT) 55 U/L (15-37) Alanine Aminotransferase (ALT/SGPT) 20 U/L (14-59) Alkaline Phosphatase 40 U/L (46-116) Total Protein 6.6 g/dL (6.4-8.2) Albumin 3.0 g/dL (3.4-5.0) Albumin/Globulin Ratio 0.8 (1.0-1.7) Medications Active Scripts Medications Dose Route/Sig Max Daily Dose Days Date Category Clopidogrel (Clopidogrel Bisulfate) 75 Mg Tablet 1 Tab PO DAILY 04/23/19 Rx Amlodipine Besylate 10 Mg Tablet 10 Mg PO DAILY 30 04/23/19 Rx Metoprolol Tartrate 50 Mg Tablet 1 Tab PO BID 04/23/19 Rx [Potassium] 550 Mg DAILY 04/22/19 Reported Vitamin E (Vitamin E Mixed) 400 Unit Tablet 1 Tab PO DAILY 04/22/19 Reported Triamterene-Hctz 37.5-25 Mg Cp (Triamterene/Hydrochlorothiazid) 1 Each Capsule 1 Cap PO DAILY 04/22/19 Reported Aspirin Ec (Aspirin) 81 Mg Tablet.dr 2 Tab PO BID 04/22/19 Reported Calcium (Calcium Carbonate) 500 Mg Tab.chew 500 Mg PO DAILY 04/21/19 Reported Vitamin C (Ascorbic Acid) 1,000 Mg Tablet 1,000 Mg PO DAILY 04/21/19 Reported Vitamin D3 (Cholecalciferol (Vitamin D3)) 4,000 Unit Capsule 0.5 Cap PO DAILY 30 04/21/19 Reported Impression . IMPRESSION: 1. Acute hypoxemic respiratory failure. 2. Bddbr-ov-ebitsez systolic and diastolic heart failure. 3. Coronary artery disease with severe coronary artery bypass grafting. 4. Hypertension. 5. Chronic atrial fibrillation. 6. Leukocytosis. 7. Elevated troponin level, possible non-ST segment elevation myocardial infarction. Plan . Patient extubated yesterday, doing well, continue oxygen supplementation Discussed advanced care planning with patient, she does not wish to be intubated does not wish to be resuscitated wishes to be medically managed, she does not want any aggressive cardiac procedures. Will honor her wishes and proceed with DO NOT RESUSCITATE DO NOT INTUBATE orders. Continue oxygen supplementation Continue diuresis Continue cardiac meds Transfer out of the intensive care unit CATE SMART MD Sep 07, 2019 08:38
[2019-09-07] MEDS: CLOPIDOGREL BISULFATE 75 MG TABLET PO SCH (08:51)
[2019-09-07] MEDS: ASPIRIN ENTERIC COATED 81 MG TABLET.DR. PO SCH ×2 (08:51→20:41)
[2019-09-07] MEDS: METOPROLOL TART IMMED RELEASE 50 MG TABLET. PO SCH ×2 (08:51→20:41)
[2019-09-07] MEDS: DOCUSATE 100 MG/10 ML SOLUTION. NG SCH ×2 (08:52→20:41)
[2019-09-07] MEDS: HEPARIN for SUB-Q USE 5,000 UNIT/ML VIAL. SQ SCH ×2 (08:52→20:48)
--- NOTE | 2019-09-07 09:16 | PDOC ---
PROGRESS NOTES Chief Complaint Chief Complaint acute hypoxic respiratory failure acute systolic CHF, CAD, recent cardiac cath, and severe three-vessel disease. she declined intervention htn, lipids afib, currently in sinus FEN - npo PPX - heparin DNR/DNI Dispo - ICU, can downgrade since extubation, to CVC History of Present Illness History of Present Illness Ms Edwards is an 89yo F w/ PMHx chronic heart failure, coronary artery disease with previous angiogram revealing severe 3-vessel coronary artery disease, hyperlipidemia, hypertension, CVA, osteoarthritis, AFib who was found down in grocery store parking lot and brought to [facility] ED on 09/05/2019, was intubated due to severe hypoxia and unresponsiveness and transferred to [facility] once stabilized. Was COVID 19 tested at [facility]. Seen on vent AC mode on wean trial. Patient extubated and able to communicate with no confusion. She is asking for ibuprofen. Remembers me from care in April. Asking if she can have evaluation for SNF. 1850cc UOP. CC time 37 minutes Vitals Vitals Vital Signs Date Time Temp Pulse Resp B/P (MAP) Pulse Ox O2 Delivery O2 Flow Rate FiO2 09/07/19 08:51 73 133/61 09/07/19 07:00 15 99 Nasal Cannula 4.0 09/07/19 06:00 98.6 98.6 Physical Exam General: Alert, Cooperative, Other (intubated/sedated) Heart: Regular rate Lungs: Crackles Abdomen: Soft Extremities: Other (trace LE edema ) Skin: No rashes, No breakdown Labs LABS Laboratory Tests Test 09/07/19 05:30 White Blood Count 11.4 x10^3/uL (4.0-11.0) Red Blood Count 4.15 x10^6/uL (3.50-5.40) Hemoglobin 12.2 g/dL (12.0-15.5) Hematocrit 36.7 % (36.0-47.0) Mean Corpuscular Volume 88 fL (79-100) Mean Corpuscular Hemoglobin 29 pg (25-35) Mean Corpuscular Hemoglobin Concent 33 g/dL (31-37) Red Cell Distribution Width 12.7 % (11.5-14.5) Platelet Count 187 x10^3/uL (140-400) Neutrophils (%) (Auto) 65 % (31-73) Lymphocytes (%) (Auto) 24 % (24-48) Monocytes (%) (Auto) 10 % (0-9) Eosinophils (%) (Auto) 1 % (0-3) Basophils (%) (Auto) 0 % (0-3) Neutrophils # (Auto) 7.3 x10^3/uL (1.8-7.7) Lymphocytes # (Auto) 2.8 x10^3/uL (1.0-4.8) Monocytes # (Auto) 1.1 x10^3/uL (0.0-1.1) Eosinophils # (Auto) 0.1 x10^3/uL (0.0-0.7) Basophils # (Auto) 0.1 x10^3/uL (0.0-0.2) Sodium Level 142 mmol/L (136-145) Potassium Level 2.8 mmol/L (3.5-5.1) Chloride Level 100 mmol/L (98-107) Carbon Dioxide Level 34 mmol/L (21-32) Anion Gap 8 (6-14) Blood Urea Nitrogen 33 mg/dL (7-20) Creatinine 1.8 mg/dL (0.6-1.0) Estimated GFR (Cockcroft-Gault) 26.6 BUN/Creatinine Ratio 18 (6-20) Glucose Level 122 mg/dL (70-99) Calcium Level 8.3 mg/dL (8.5-10.1) Total Bilirubin 0.9 mg/dL (0.2-1.0) Aspartate Amino Transf (AST/SGOT) 55 U/L (15-37) Alanine Aminotransferase (ALT/SGPT) 20 U/L (14-59) Alkaline Phosphatase 40 U/L (46-116) Total Protein 6.6 g/dL (6.4-8.2) Albumin 3.0 g/dL (3.4-5.0) Albumin/Globulin Ratio 0.8 (1.0-1.7) Comment Review of Relevant I have reviewed the following items miguel (where applicable) has been applied. Labs Laboratory Tests Test 09/05/19 21:37 09/06/19 05:30 09/06/19 07:30 09/07/19 05:30 O2 Saturation 99 % (92-99) 95 % (92-99) Arterial Blood pH 7.45 (7.35-7.45) 7.62 (7.35-7.45) Arterial Blood pCO2 at Patient Temp 40 mmHg (35-46) 27 mmHg (35-46) Arterial Blood pO2 at Patient Temp 302 mmHg (65-108) 67 mmHg (65-108) Arterial Blood HCO3 27 mmol/L (21-28) 28 mmol/L (21-28) Arterial Blood Base Excess 3 mmol/L (-3-3) 7 mmol/L (-3-3) FiO2 100 40 White Blood Count 14.5 x10^3/uL (4.0-11.0) 11.4 x10^3/uL (4.0-11.0) Red Blood Count 4.37 x10^6/uL (3.50-5.40) 4.15 x10^6/uL (3.50-5.40) Hemoglobin 12.8 g/dL (12.0-15.5) 12.2 g/dL (12.0-15.5) Hematocrit 38.2 % (36.0-47.0) 36.7 % (36.0-47.0) Mean Corpuscular Volume 88 fL (79-100) 88 fL (79-100) Mean Corpuscular Hemoglobin 29 pg (25-35) 29 pg (25-35) Mean Corpuscular Hemoglobin Concent 33 g/dL (31-37) 33 g/dL (31-37) Red Cell Distribution Width 12.7 % (11.5-14.5) 12.7 % (11.5-14.5) Platelet Count 210 x10^3/uL (140-400) 187 x10^3/uL (140-400) Neutrophils (%) (Auto) 77 % (31-73) 65 % (31-73) Lymphocytes (%) (Auto) 15 % (24-48) 24 % (24-48) Monocytes (%) (Auto) 7 % (0-9) 10 % (0-9) Eosinophils (%) (Auto) 0 % (0-3) 1 % (0-3) Basophils (%) (Auto) 0 % (0-3) 0 % (0-3) Neutrophils # (Auto) 11.2 x10^3/uL (1.8-7.7) 7.3 x10^3/uL (1.8-7.7) Lymphocytes # (Auto) 2.2 x10^3/uL (1.0-4.8) 2.8 x10^3/uL (1.0-4.8) Monocytes # (Auto) 1.1 x10^3/uL (0.0-1.1) 1.1 x10^3/uL (0.0-1.1) Eosinophils # (Auto) 0.0 x10^3/uL (0.0-0.7) 0.1 x10^3/uL (0.0-0.7) Basophils # (Auto) 0.1 x10^3/uL (0.0-0.2) 0.1 x10^3/uL (0.0-0.2) Sodium Level 140 mmol/L (136-145) 142 mmol/L (136-145) Potassium Level 3.6 mmol/L (3.5-5.1) 2.8 mmol/L (3.5-5.1) Chloride Level 100 mmol/L (98-107) 100 mmol/L (98-107) Carbon Dioxide Level 31 mmol/L (21-32) 34 mmol/L (21-32) Anion Gap 9 (6-14) 8 (6-14) Blood Urea Nitrogen 32 mg/dL (7-20) 33 mg/dL (7-20) Creatinine 1.9 mg/dL (0.6-1.0) 1.8 mg/dL (0.6-1.0) Estimated GFR (Cockcroft-Gault) 24.9 26.6 BUN/Creatinine Ratio 17 (6-20) 18 (6-20) Glucose Level 148 mg/dL (70-99) 122 mg/dL (70-99) Calcium Level 8.6 mg/dL (8.5-10.1) 8.3 mg/dL (8.5-10.1) Total Bilirubin 0.8 mg/dL (0.2-1.0) 0.9 mg/dL (0.2-1.0) Aspartate Amino Transf (AST/SGOT) 86 U/L (15-37) 55 U/L (15-37) Alanine Aminotransferase (ALT/SGPT) 24 U/L (14-59) 20 U/L (14-59) Alkaline Phosphatase 40 U/L (46-116) 40 U/L (46-116) Troponin I Quantitative 20.161 ng/mL (0.000-0.055) Total Protein 6.6 g/dL (6.4-8.2) 6.6 g/dL (6.4-8.2) Albumin 3.0 g/dL (3.4-5.0) 3.0 g/dL (3.4-5.0) Albumin/Globulin Ratio 0.8 (1.0-1.7) 0.8 (1.0-1.7) Laboratory Tests Test 09/07/19 05:30 White Blood Count 11.4 x10^3/uL (4.0-11.0) Red Blood Count 4.15 x10^6/uL (3.50-5.40) Hemoglobin 12.2 g/dL (12.0-15.5) Hematocrit 36.7 % (36.0-47.0) Mean Corpuscular Volume 88 fL (79-100) Mean Corpuscular Hemoglobin 29 pg (25-35) Mean Corpuscular Hemoglobin Concent 33 g/dL (31-37) Red Cell Distribution Width 12.7 % (11.5-14.5) Platelet Count 187 x10^3/uL (140-400) Neutrophils (%) (Auto) 65 % (31-73) Lymphocytes (%) (Auto) 24 % (24-48) Monocytes (%) (Auto) 10 % (0-9) Eosinophils (%) (Auto) 1 % (0-3) Basophils (%) (Auto) 0 % (0-3) Neutrophils # (Auto) 7.3 x10^3/uL (1.8-7.7) Lymphocytes # (Auto) 2.8 x10^3/uL (1.0-4.8) Monocytes # (Auto) 1.1 x10^3/uL (0.0-1.1) Eosinophils # (Auto) 0.1 x10^3/uL (0.0-0.7) Basophils # (Auto) 0.1 x10^3/uL (0.0-0.2) Sodium Level 142 mmol/L (136-145) Potassium Level 2.8 mmol/L (3.5-5.1) Chloride Level 100 mmol/L (98-107) Carbon Dioxide Level 34 mmol/L (21-32) Anion Gap 8 (6-14) Blood Urea Nitrogen 33 mg/dL (7-20) Creatinine 1.8 mg/dL (0.6-1.0) Estimated GFR (Cockcroft-Gault) 26.6 BUN/Creatinine Ratio 18 (6-20) Glucose Level 122 mg/dL (70-99) Calcium Level 8.3 mg/dL (8.5-10.1) Total Bilirubin 0.9 mg/dL (0.2-1.0) Aspartate Amino Transf (AST/SGOT) 55 U/L (15-37) Alanine Aminotransferase (ALT/SGPT) 20 U/L (14-59) Alkaline Phosphatase 40 U/L (46-116) Total Protein 6.6 g/dL (6.4-8.2) Albumin 3.0 g/dL (3.4-5.0) Albumin/Globulin Ratio 0.8 (1.0-1.7) Medications Current Medications Fentanyl Citrate 30 ml @ 0 mls/hr CONT PRN IV SEE PROTOCOL Last administered on 09/05/19at 21:36; Start 09/05/19 at 21:00; Stop 09/06/19 at 17:45; Status DC Propofol 100 ml @ 0 mls/hr CONT PRN IV SEE PROTOCOL Last administered on 09/06/19at 08:40; Start 09/05/19 at 21:00; Stop 09/06/19 at 17:45; Status DC Fentanyl Citrate (Fentanyl 2ml Vial) 25 mcg PRN Q1HR PRN IV SEE COMMENTS; Start 09/05/19 at 20:45 Fentanyl Citrate (Fentanyl 2ml Vial) 50 mcg PRN Q1HR PRN IV SEE COMMENTS; Start 09/05/19 at 20:45 Chlorhexidine Gluconate (Peridex) 15 ml BID MM Last administered on 09/06/19at 08:39; Start 09/05/19 at 21:00; Stop 09/06/19 at 17:45; Status DC Artificial Tears (Artificial Tears) 1 drop PRN Q1HR PRN OU DRY EYE; Start 09/05/19 at 20:45 Famotidine (Pepcid) 20 mg BID NG Last administered on 09/06/19 08:39; Start 09/05/19 at 21:00; Stop 09/06/19 at 09:47; Status DC Olanzapine (ZyPREXA ZYDIS) 5 mg PRN Q4HRS PRN PO AGITATION, DELIRIUM; Start 09/05/19 at 20:45 Docusate Sodium (Colace Solution) 100 mg BID NG Last administered on 09/06/19 20:59; Start 09/05/19 at 21:00 Bisacodyl (Dulcolax Supp) 10 mg PRN DAILY PRN DE CONSTIPATION; Start 09/05/19 at 20:45 Heparin Sodium (Porcine) (Heparin Sodium) 5,000 unit Q8HRS SQ Last administered on 09/07/19 08:52; Start 09/05/19 at 22:00 Ondansetron HCl (Zofran) 4 mg PRN Q6HRS PRN IVP NAUSEA/VOMITING; Start 09/05/19 at 20:45 Info (Icu Electrolyte Protocol) 1 ea DAILY MC ; Start 09/06/19 at 09:00 Sodium Chloride (Normal Saline Flush) 3 ml QSHIFT PRN IV AFTER MEDS AND BLOOD DRAWS; Start 09/05/19 at 20:45 Lactulose (Lactulose) 20 gm PRN Q12HR PRN PO CONSTIPATION; Start 09/05/19 at 20:45 Famotidine (Pepcid) 20 mg QHS NG Last administered on 09/06/19 20:59; Start 09/06/19 at 21:00 Furosemide (Lasix) 20 mg 1X ONCE IVP Last administered on 09/06/19 14:49; Start 09/06/19 at 14:30; Stop 09/06/19 at 14:36; Status DC Aspirin (Ecotrin) 162 mg BID PO Last administered on 09/07/19 08:51; Start 09/06/19 at 21:00 Clopidogrel Bisulfate (Plavix) 75 mg DAILY PO Last administered on 09/07/19 08:51; Start 09/07/19 at 09:00 Metoprolol Tartrate (Lopressor) 50 mg BID PO Last administered on 09/07/19 08:51; Start 09/06/19 at 21:00 Potassium Chloride (Klor-Con) 40 meq 1X ONCE PO Last administered on 7/8/20at 08:51; Start 09/07/19 at 07:30; Stop 09/07/19 at 07:31; Status DC Active Scripts Active Clopidogrel (Clopidogrel Bisulfate) 75 Mg Tablet 1 Tab PO DAILY 30 Days Amlodipine Besylate 10 Mg Tablet 10 Mg PO DAILY 30 Days Metoprolol Tartrate 50 Mg Tablet 1 Tab PO BID 30 Days Reported [Potassium] 550 Mg DAILY Vitamin E (Vitamin E Mixed) 400 Unit Tablet 1 Tab PO DAILY 30 Days Triamterene-Hctz 37.5-25 Mg Cp (Triamterene/Hydrochlorothiazid) 1 Each Capsule 1 Cap PO DAILY Aspirin Ec (Aspirin) 81 Mg Tablet.dr 2 Tab PO BID Calcium (Calcium Carbonate) 500 Mg Tab.chew 500 Mg PO DAILY Vitamin C (Ascorbic Acid) 1,000 Mg Tablet 1,000 Mg PO DAILY Vitamin D3 (Cholecalciferol (Vitamin D3)) 4,000 Unit Capsule 0.5 Cap PO DAILY 30 Days Vitals/I & O Vital Sign - Last 24 Hours 09/06/19 09/06/19 09/06/19 09/06/19 10:00 11:00 11:36 12:00 Temp 99.9 99.9 Pulse 71 72 70 Resp 11 12 12 B/P (MAP) 93/39 (57) 87/42 (57) 98/45 (62) Pulse Ox 100 100 100 100 O2 Delivery Ventilator Ventilator Ventilator Ventilator 09/06/19 09/06/19 09/06/19 09/06/19 12:00 13:00 14:00 15:00 Pulse 73 83 Resp 12 13 B/P (MAP) 95/41 (59) 149/53 (85) Pulse Ox 100 100 100 O2 Delivery Mechanical Ventilator Ventilator Ventilator Ventilator 09/06/19 09/06/19 09/06/19 09/06/19 15:00 15:05 16:00 16:00 Temp 99.1 99.1 Pulse 96 87 Resp 33 28 B/P (MAP) 164/63 (96) 140/55 (83) Pulse Ox 98 98 O2 Delivery Ventilator Nasal Cannula Nasal Cannula Nasal Cannula O2 Flow Rate 4.0 4.0 4.0 09/06/19 09/06/19 09/06/19 09/06/19 17:00 18:00 19:00 20:00 Temp 99.1 98.7 99.1 98.7 Pulse 84 83 82 96 Resp 13 11 20 B/P (MAP) 133/43 (73) 113/51 (71) 114/45 (68) 173/70 (104) Pulse Ox 98 98 98 98 O2 Delivery Nasal Cannula Nasal Cannula Nasal Cannula Nasal Cannula O2 Flow Rate 4.0 4.0 4.0 4.0 09/06/19 09/06/19 09/06/19 09/06/19 20:00 21:00 21:00 22:00 Temp 98.7 98.7 Pulse 82 83 70 B/P (MAP) 146/56 (86) 113/51 151/53 (85) Pulse Ox 98 98 O2 Delivery Nasal Cannula Nasal Cannula Nasal Cannula O2 Flow Rate 4.0 4.0 4.0 09/06/19 09/06/19 09/07/19 09/07/19 23:00 23:59 00:00 01:07 Temp 98.7 98.7 Pulse 69 68 76 Resp 20 B/P (MAP) 127/52 (77) 127/52 (77) 126/52 (76) Pulse Ox 98 98 99 O2 Delivery Nasal Cannula Nasal Cannula Nasal Cannula Nasal Cannula O2 Flow Rate 4.0 4.0 4.0 4.0 09/07/19 09/07/19 09/07/19 09/07/19 02:00 03:00 04:00 04:00 Temp 98.7 98.7 98.6 98.7 98.7 98.6 Pulse 66 66 66 Resp 16 20 B/P (MAP) 117/42 (67) 117/42 (67) 119/46 (70) Pulse Ox 99 99 99 O2 Delivery Nasal Cannula Nasal Cannula Nasal Cannula Nasal Cannula O2 Flow Rate 4.0 4.0 4.0 4.0 09/07/19 09/07/19 09/07/19 09/07/19 05:00 06:00 07:00 08:51 Temp 98.6 98.6 98.6 98.6 Pulse 68 70 73 73 Resp 20 15 B/P (MAP) 143/60 (87) 121/58 (79) 133/61 (85) 133/61 Pulse Ox 99 99 99 O2 Delivery Nasal Cannula Nasal Cannula Nasal Cannula O2 Flow Rate 4.0 4.0 4.0 Intake and Output 09/06/19 09/06/19 09/07/19 15:00 23:00 07:00 Intake Total 141.3 ml 150 ml 360 ml Output Total 150 ml 1200 ml 500 ml Balance -8.7 ml -1050 ml -140 ml Justicifation of Admission Dx: Justifications for Admission: Justification of Admission Dx: Yes ERMA VILLALTA MD Sep 07, 2019 09:16
[2019-09-07] MEDS: IBUPROFEN 400 MG TABLET. PO PRN ×2 (11:45→20:56)
--- NOTE | 2019-09-07 12:10 | PDOC ---
ZHANNA JEFFERS [employer] 09/07/19 1210: CARDIO Progress Notes Date and Time Date of Service 09/07/19 Time of Evaluation 1145 Subjective Subjective: No Chest Pain, No shortness of breath, No Palpitations, Other (wanting to go home ) Vitals Vitals Vital Signs Date Time Temp Pulse Resp B/P (MAP) Pulse Ox O2 Delivery O2 Flow Rate FiO2 09/07/19 11:00 67 18 140/53 (82) 98 Nasal Cannula 4.0 09/07/19 08:00 99.1 99.1 Weight Weight [ ] Input and Output Intake and Output Intake and Output 09/07/19 07:00 Intake Total 651.3 ml Output Total 1850 ml Balance -1198.7 ml Intake Oral 50 ml IV Total 91.3 ml Other 510 ml Output Urine Total 1850 ml Laboratory Labs Laboratory Tests Test 09/07/19 05:30 White Blood Count 11.4 x10^3/uL (4.0-11.0) Red Blood Count 4.15 x10^6/uL (3.50-5.40) Hemoglobin 12.2 g/dL (12.0-15.5) Hematocrit 36.7 % (36.0-47.0) Mean Corpuscular Volume 88 fL (79-100) Mean Corpuscular Hemoglobin 29 pg (25-35) Mean Corpuscular Hemoglobin Concent 33 g/dL (31-37) Red Cell Distribution Width 12.7 % (11.5-14.5) Platelet Count 187 x10^3/uL (140-400) Neutrophils (%) (Auto) 65 % (31-73) Lymphocytes (%) (Auto) 24 % (24-48) Monocytes (%) (Auto) 10 % (0-9) Eosinophils (%) (Auto) 1 % (0-3) Basophils (%) (Auto) 0 % (0-3) Neutrophils # (Auto) 7.3 x10^3/uL (1.8-7.7) Lymphocytes # (Auto) 2.8 x10^3/uL (1.0-4.8) Monocytes # (Auto) 1.1 x10^3/uL (0.0-1.1) Eosinophils # (Auto) 0.1 x10^3/uL (0.0-0.7) Basophils # (Auto) 0.1 x10^3/uL (0.0-0.2) Sodium Level 142 mmol/L (136-145) Potassium Level 2.8 mmol/L (3.5-5.1) Chloride Level 100 mmol/L (98-107) Carbon Dioxide Level 34 mmol/L (21-32) Anion Gap 8 (6-14) Blood Urea Nitrogen 33 mg/dL (7-20) Creatinine 1.8 mg/dL (0.6-1.0) Estimated GFR (Cockcroft-Gault) 26.6 BUN/Creatinine Ratio 18 (6-20) Glucose Level 122 mg/dL (70-99) Calcium Level 8.3 mg/dL (8.5-10.1) Magnesium Level 1.6 mg/dL (1.8-2.4) Total Bilirubin 0.9 mg/dL (0.2-1.0) Aspartate Amino Transf (AST/SGOT) 55 U/L (15-37) Alanine Aminotransferase (ALT/SGPT) 20 U/L (14-59) Alkaline Phosphatase 40 U/L (46-116) Total Protein 6.6 g/dL (6.4-8.2) Albumin 3.0 g/dL (3.4-5.0) Albumin/Globulin Ratio 0.8 (1.0-1.7) Physical Exam HEENT: Neck Supple W Full Motion Chest: Symmetric LUNGS: Other (diminished bases ) Heart: RRR Abdomen: Soft N/T Extremities: No Edema Neurology: alert, oriented, follow commands Assessment Assessment 1. Acute respiratory failure; extubated 09/05. COVID pending. low-grade fevers. 2. Acute on chronic diastolic CHF; flash pulm edema due to hypertensive urgency 3. Hypertensive urgency upon arrival; labile 4. CAD; 3VD noted per [facility] 04/21. Patient opted for medical management; which was again verified with Brian MANZANARES and patient. She reports he has had a good life and is ready to pass when it is her time. Not interested in any further cardiac workup or intervention. 5. NSTEMI 6. Leukocytosis, lactic acidosis 7. Hyperlipidemia 8. SUSANNAH on CKD 9. PAFIB; maintaining SR 10. Hypokalemia, hypomagnesemia Recommendations Mild diuresis with monitoring of renal function Replace lytes Secondary prevention measures No KARINE with SUSANNAH Resume antiHTN therapy Hydralazine IV PRN Continue medical management as patient wishes. Discuss Hospice services. Patient considering Supportive care Justicifation of Admission Dx: Justifications for Admission: Justification of Admission Dx: Yes NYA JUDD MD 09/07/19 2254: CARDIO Progress Notes Attending Co-Sign The patient was seen and interviewed as well as examined at the bedside. The chart was reviewed. The case was discussed. Agree with the plan of care. ZHANNA JEFFERS APRN Sep 07, 2019 12:10 NYA JUDD MD Sep 07, 2019 22:54
[2019-09-07] MEDS ORDERED: MAGNESIUM SULFATE 2GM 50 ML IV ONE ×2 (12:15→13:00)
--- NOTE | 2019-09-07 13:37 | NUR ---
SS following up with discharge planning. SS reviewed pt chart and discussed with pt RN. Pt COVID19 negative from [facility]. Pt extubated and now on nasal canula oxygen. PT/OT ordered. SS will continue to follow for discharge planning.
[2019-09-07] MEDS ORDERED: FUROSEMIDE 20 MG/2 ML VIAL. IVP ONE (16:15)
[2019-09-07] MEDS ORDERED: hydrALAZINE 20 MG/ML VIAL. IVP PRN (16:15)
[2019-09-07] MEDS: amLODIPine BESYLATE 10 MG TABLET PO SCH (16:37)
--- NOTE | 2019-09-07 17:14 | NUR ---
Wound Care: Pt seen for wound care screen. No wounds noted upon skin assessment. Wound care will sign off.
--- NOTE | 2019-09-07 18:29 | NUR ---
S/P yoder catheter removal prior to transfer to [address] [place] [address]. Pt voided 80ml. Bladder scanned patient with zero ml reading obtained post voiding.
--- NOTE | 2019-09-07 19:05 | NUR ---
Pt in bed assessment completed vss poc explained pt denied pain at this time.Pt reminded to call for assistance prior to getting oob call light in reach will resume care and continue to monitor pt.
[2019-09-07] MEDS: ATORVASTATIN CALCIUM 40 MG TABLET. PO SCH (20:41)
[2019-09-07] MEDS: FAMOTIDINE 20 MG TABLET. NG SCH (20:41)
[2019-09-08 02:35] VITALS: BP 134/65
[2019-09-08 05:38] LABS: BASO # 0.1 x10^3/uL (0.0-0.2); BASO % 1 % (0-3); EOS # 0.1 x10^3/uL (0.0-0.7); EOS % 1 % (0-3); HEMATOCRIT 33.7 % (36.0-47.0); HEMOGLOBIN 11.3 g/dL (12.0-15.5); LYMPH # 2.1 x10^3/uL (1.0-4.8); LYMPH % 19 % (24-48); MEAN CORPUSCULAR HEMOGLOBIN 30 pg (25-35); MEAN CORPUSCULAR HGB CONC 34 g/dL (31-37); MEAN CORPUSCULAR VOLUME 88 fL (79-100); MONO % 9 % (0-9); NEUT # 7.6 x10^3/uL (1.8-7.7); NEUT % 70 % (31-73); PLATELET COUNT 186 x10^3/uL (140-400); RED BLOOD COUNT 3.81 x10^6/uL (3.50-5.40); RED CELL DISTRIBUTION WIDTH 12.7 % (11.5-14.5); WHITE BLOOD COUNT 10.8 x10^3/uL (4.0-11.0)
[2019-09-08 05:52] LABS: CALCIUM 8.4 mg/dL (8.5-10.1); CREATININE 1.9 mg/dL (0.6-1.0); GFR 24.9; POTASSIUM 3.2 mmol/L (3.5-5.1)
[2019-09-08 07:00] VITALS: BP 160/70
--- NOTE | 2019-09-08 08:42 | PDOC ---
PULMONARY PROGRESS NOTES Subjective Patient feels better today not short of air Vitals Vital Signs Date Time Temp Pulse Resp B/P (MAP) Pulse Ox O2 Delivery O2 Flow Rate FiO2 09/08/19 08:00 Nasal Cannula 2.0 09/08/19 07:00 97.9 67 18 160/70 (100) 90 97.9 ROS: No Nausea, No Chest Pain, No Abdominal Pain, No Increase Cough Lungs: Crackles Cardiovascular: S1, S2 Abdomen: Soft Neuro Exam: Alert Extremities: No Edema Skin: Warm Labs Laboratory Tests Test 09/07/19 05:30 09/08/19 05:15 White Blood Count 11.4 x10^3/uL (4.0-11.0) 10.8 x10^3/uL (4.0-11.0) Red Blood Count 4.15 x10^6/uL (3.50-5.40) 3.81 x10^6/uL (3.50-5.40) Hemoglobin 12.2 g/dL (12.0-15.5) 11.3 g/dL (12.0-15.5) Hematocrit 36.7 % (36.0-47.0) 33.7 % (36.0-47.0) Mean Corpuscular Volume 88 fL (79-100) 88 fL (79-100) Mean Corpuscular Hemoglobin 29 pg (25-35) 30 pg (25-35) Mean Corpuscular Hemoglobin Concent 33 g/dL (31-37) 34 g/dL (31-37) Red Cell Distribution Width 12.7 % (11.5-14.5) 12.7 % (11.5-14.5) Platelet Count 187 x10^3/uL (140-400) 186 x10^3/uL (140-400) Neutrophils (%) (Auto) 65 % (31-73) 70 % (31-73) Lymphocytes (%) (Auto) 24 % (24-48) 19 % (24-48) Monocytes (%) (Auto) 10 % (0-9) 9 % (0-9) Eosinophils (%) (Auto) 1 % (0-3) 1 % (0-3) Basophils (%) (Auto) 0 % (0-3) 1 % (0-3) Neutrophils # (Auto) 7.3 x10^3/uL (1.8-7.7) 7.6 x10^3/uL (1.8-7.7) Lymphocytes # (Auto) 2.8 x10^3/uL (1.0-4.8) 2.1 x10^3/uL (1.0-4.8) Monocytes # (Auto) 1.1 x10^3/uL (0.0-1.1) 1.0 x10^3/uL (0.0-1.1) Eosinophils # (Auto) 0.1 x10^3/uL (0.0-0.7) 0.1 x10^3/uL (0.0-0.7) Basophils # (Auto) 0.1 x10^3/uL (0.0-0.2) 0.1 x10^3/uL (0.0-0.2) Sodium Level 142 mmol/L (136-145) 140 mmol/L (136-145) Potassium Level 2.8 mmol/L (3.5-5.1) 3.2 mmol/L (3.5-5.1) Chloride Level 100 mmol/L (98-107) 100 mmol/L (98-107) Carbon Dioxide Level 34 mmol/L (21-32) 31 mmol/L (21-32) Anion Gap 8 (6-14) 9 (6-14) Blood Urea Nitrogen 33 mg/dL (7-20) 41 mg/dL (7-20) Creatinine 1.8 mg/dL (0.6-1.0) 1.9 mg/dL (0.6-1.0) Estimated GFR (Cockcroft-Gault) 26.6 24.9 BUN/Creatinine Ratio 18 (6-20) Glucose Level 122 mg/dL (70-99) 129 mg/dL (70-99) Calcium Level 8.3 mg/dL (8.5-10.1) 8.4 mg/dL (8.5-10.1) Magnesium Level 1.6 mg/dL (1.8-2.4) 2.8 mg/dL (1.8-2.4) Total Bilirubin 0.9 mg/dL (0.2-1.0) Aspartate Amino Transf (AST/SGOT) 55 U/L (15-37) Alanine Aminotransferase (ALT/SGPT) 20 U/L (14-59) Alkaline Phosphatase 40 U/L (46-116) Total Protein 6.6 g/dL (6.4-8.2) Albumin 3.0 g/dL (3.4-5.0) Albumin/Globulin Ratio 0.8 (1.0-1.7) Laboratory Tests Test 09/08/19 05:15 White Blood Count 10.8 x10^3/uL (4.0-11.0) Red Blood Count 3.81 x10^6/uL (3.50-5.40) Hemoglobin 11.3 g/dL (12.0-15.5) Hematocrit 33.7 % (36.0-47.0) Mean Corpuscular Volume 88 fL (79-100) Mean Corpuscular Hemoglobin 30 pg (25-35) Mean Corpuscular Hemoglobin Concent 34 g/dL (31-37) Red Cell Distribution Width 12.7 % (11.5-14.5) Platelet Count 186 x10^3/uL (140-400) Neutrophils (%) (Auto) 70 % (31-73) Lymphocytes (%) (Auto) 19 % (24-48) Monocytes (%) (Auto) 9 % (0-9) Eosinophils (%) (Auto) 1 % (0-3) Basophils (%) (Auto) 1 % (0-3) Neutrophils # (Auto) 7.6 x10^3/uL (1.8-7.7) Lymphocytes # (Auto) 2.1 x10^3/uL (1.0-4.8) Monocytes # (Auto) 1.0 x10^3/uL (0.0-1.1) Eosinophils # (Auto) 0.1 x10^3/uL (0.0-0.7) Basophils # (Auto) 0.1 x10^3/uL (0.0-0.2) Sodium Level 140 mmol/L (136-145) Potassium Level 3.2 mmol/L (3.5-5.1) Chloride Level 100 mmol/L (98-107) Carbon Dioxide Level 31 mmol/L (21-32) Anion Gap 9 (6-14) Blood Urea Nitrogen 41 mg/dL (7-20) Creatinine 1.9 mg/dL (0.6-1.0) Estimated GFR (Cockcroft-Gault) 24.9 Glucose Level 129 mg/dL (70-99) Calcium Level 8.4 mg/dL (8.5-10.1) Magnesium Level 2.8 mg/dL (1.8-2.4) Medications Active Scripts Medications Dose Route/Sig Max Daily Dose Days Date Category Clopidogrel (Clopidogrel Bisulfate) 75 Mg Tablet 1 Tab PO DAILY 30 04/23/19 Rx Amlodipine Besylate 10 Mg Tablet 10 Mg PO DAILY 30 04/23/19 Rx Metoprolol Tartrate 50 Mg Tablet 1 Tab PO BID 30 04/23/19 Rx [Potassium] 550 Mg DAILY 04/22/19 Reported Vitamin E (Vitamin E Mixed) 400 Unit Tablet 1 Tab PO DAILY 30 04/22/19 Reported Triamterene-Hctz 37.5-25 Mg Cp (Triamterene/Hydrochlorothiazid) 1 Each Capsule 1 Cap PO DAILY 04/22/19 Reported Aspirin Ec (Aspirin) 81 Mg Tablet.dr 2 Tab PO BID 04/22/19 Reported Calcium (Calcium Carbonate) 500 Mg Tab.chew 500 Mg PO DAILY 04/21/19 Reported Vitamin C (Ascorbic Acid) 1,000 Mg Tablet 1,000 Mg PO DAILY 04/21/19 Reported Vitamin D3 (Cholecalciferol (Vitamin D3)) 4,000 Unit Capsule 0.5 Cap PO DAILY 30 04/21/19 Reported Impression . IMPRESSION: 1. Acute hypoxemic respiratory failure. 2. [id number] systolic and diastolic heart failure. 3. Coronary artery disease with severe coronary artery bypass grafting. 4. Hypertension. 5. Chronic atrial fibrillation. 6. Leukocytosis. 7. Elevated troponin level, possible non-ST segment elevation myocardial infarction. Plan . 09/07 Extubated 09/05 We will continue support medical management Up to chair Social service to work on possible transfer to rehab Patient states that she does not take a diuretic at home 09/06 Discussed advanced care planning with patient, she does not wish to be intubated does not wish to be resuscitated wishes to be medically managed, she does not want any aggressive cardiac procedures. Will honor her wishes and proceed with DO NOT RESUSCITATE DO NOT INTUBATE orders. Continue oxygen supplementation Continue diuresis Continue cardiac meds Transfer out of the intensive care unit CATE SMART MD Sep 08, 2019 08:42
[2019-09-08] MEDS: CLOPIDOGREL BISULFATE 75 MG TABLET PO SCH (08:46)
[2019-09-08] MEDS: amLODIPine BESYLATE 10 MG TABLET PO SCH (08:47)
[2019-09-08] MEDS: ASPIRIN ENTERIC COATED 81 MG TABLET.DR. PO SCH ×2 (08:47→20:33)
[2019-09-08] MEDS: METOPROLOL TART IMMED RELEASE 50 MG TABLET. PO SCH ×2 (08:47→20:32)
[2019-09-08] MEDS: HEPARIN for SUB-Q USE 5,000 UNIT/ML VIAL. SQ SCH ×2 (08:56→20:39)
[2019-09-08] MEDS: ELECTROLYTE (ICU) PROTOCOL. MC SCH (09:00)
[2019-09-08] MEDS: DOCUSATE 100 MG/10 ML SOLUTION. NG SCH ×2 (09:00→20:33)
--- NOTE | 2019-09-08 09:06 | PDOC ---
PROGRESS NOTES Chief Complaint Chief Complaint A/P: acute hypoxic respiratory failure acute systolic CHF, NSTEMI - trop peak of 20 CAD, recent cardiac cath, and severe three-vessel disease. she declined in tervention htn, lipids afib, currently in sinus FEN - Cardiac PPX - heparin DNR/DNI Dispo - [facility]VC History of Present Illness History of Present Illness Ms Edwards is an 89yo F w/ PMHx chronic heart failure, coronary artery disease with previous angiogram revealing severe 3-vessel coronary artery disease, hyperlipidemia, hypertension, CVA, osteoarthritis, AFib who was found down in grocery store parking lot and brought to [facility] ED on 09/05/2019, was intubated due to severe hypoxia and unresponsiveness and transferred to [facility] once stabilized. Was COVID 19 tested at [facility]. 09/06: Seen on vent AC mode on wean trial. Patient extubated and able to communicate with no confusion. She is asking for ibuprofen. Remembers me from care in April. Asking if she can have evaluation for SNF. 1850cc UOP. Troponin peaked at 20. Successfully extubated on 09/06, transferred to [facility]. K 3.2, Mg 2.8 today. Cr down to 1.9. She is a bit confused, very weak. therapy recommends SNF. Her son is coming up today to discuss this, they have requested [facility]. Vitals Vitals Vital Signs Date Time Temp Pulse Resp B/P (MAP) Pulse Ox O2 Delivery O2 Flow Rate FiO2 09/08/19 08:47 67 160/70 09/08/19 08:00 Nasal Cannula 2.0 09/08/19 07:00 97.9 18 90 97.9 Physical Exam General: Alert, Cooperative, Other (intubated/sedated) Heart: Regular rate Lungs: Crackles Abdomen: Soft Extremities: Other (trace LE edema ) Skin: No rashes, No breakdown Labs LABS Laboratory Tests Test 09/08/19 05:15 White Blood Count 10.8 x10^3/uL (4.0-11.0) Red Blood Count 3.81 x10^6/uL (3.50-5.40) Hemoglobin 11.3 g/dL (12.0-15.5) Hematocrit 33.7 % (36.0-47.0) Mean Corpuscular Volume 88 fL (79-100) Mean Corpuscular Hemoglobin 30 pg (25-35) Mean Corpuscular Hemoglobin Concent 34 g/dL (31-37) Red Cell Distribution Width 12.7 % (11.5-14.5) Platelet Count 186 x10^3/uL (140-400) Neutrophils (%) (Auto) 70 % (31-73) Lymphocytes (%) (Auto) 19 % (24-48) Monocytes (%) (Auto) 9 % (0-9) Eosinophils (%) (Auto) 1 % (0-3) Basophils (%) (Auto) 1 % (0-3) Neutrophils # (Auto) 7.6 x10^3/uL (1.8-7.7) Lymphocytes # (Auto) 2.1 x10^3/uL (1.0-4.8) Monocytes # (Auto) 1.0 x10^3/uL (0.0-1.1) Eosinophils # (Auto) 0.1 x10^3/uL (0.0-0.7) Basophils # (Auto) 0.1 x10^3/uL (0.0-0.2) Sodium Level 140 mmol/L (136-145) Potassium Level 3.2 mmol/L (3.5-5.1) Chloride Level 100 mmol/L (98-107) Carbon Dioxide Level 31 mmol/L (21-32) Anion Gap 9 (6-14) Blood Urea Nitrogen 41 mg/dL (7-20) Creatinine 1.9 mg/dL (0.6-1.0) Estimated GFR (Cockcroft-Gault) 24.9 Glucose Level 129 mg/dL (70-99) Calcium Level 8.4 mg/dL (8.5-10.1) Magnesium Level 2.8 mg/dL (1.8-2.4) Comment Review of Relevant I have reviewed the following items miguel (where applicable) has been applied. Labs Laboratory Tests Test 09/07/19 05:30 09/08/19 05:15 White Blood Count 11.4 x10^3/uL (4.0-11.0) 10.8 x10^3/uL (4.0-11.0) Red Blood Count 4.15 x10^6/uL (3.50-5.40) 3.81 x10^6/uL (3.50-5.40) Hemoglobin 12.2 g/dL (12.0-15.5) 11.3 g/dL (12.0-15.5) Hematocrit 36.7 % (36.0-47.0) 33.7 % (36.0-47.0) Mean Corpuscular Volume 88 fL (79-100) 88 fL (79-100) Mean Corpuscular Hemoglobin 29 pg (25-35) 30 pg (25-35) Mean Corpuscular Hemoglobin Concent 33 g/dL (31-37) 34 g/dL (31-37) Red Cell Distribution Width 12.7 % (11.5-14.5) 12.7 % (11.5-14.5) Platelet Count 187 x10^3/uL (140-400) 186 x10^3/uL (140-400) Neutrophils (%) (Auto) 65 % (31-73) 70 % (31-73) Lymphocytes (%) (Auto) 24 % (24-48) 19 % (24-48) Monocytes (%) (Auto) 10 % (0-9) 9 % (0-9) Eosinophils (%) (Auto) 1 % (0-3) 1 % (0-3) Basophils (%) (Auto) 0 % (0-3) 1 % (0-3) Neutrophils # (Auto) 7.3 x10^3/uL (1.8-7.7) 7.6 x10^3/uL (1.8-7.7) Lymphocytes # (Auto) 2.8 x10^3/uL (1.0-4.8) 2.1 x10^3/uL (1.0-4.8) Monocytes # (Auto) 1.1 x10^3/uL (0.0-1.1) 1.0 x10^3/uL (0.0-1.1) Eosinophils # (Auto) 0.1 x10^3/uL (0.0-0.7) 0.1 x10^3/uL (0.0-0.7) Basophils # (Auto) 0.1 x10^3/uL (0.0-0.2) 0.1 x10^3/uL (0.0-0.2) Sodium Level 142 mmol/L (136-145) 140 mmol/L (136-145) Potassium Level 2.8 mmol/L (3.5-5.1) 3.2 mmol/L (3.5-5.1) Chloride Level 100 mmol/L (98-107) 100 mmol/L (98-107) Carbon Dioxide Level 34 mmol/L (21-32) 31 mmol/L (21-32) Anion Gap 8 (6-14) 9 (6-14) Blood Urea Nitrogen 33 mg/dL (7-20) 41 mg/dL (7-20) Creatinine 1.8 mg/dL (0.6-1.0) 1.9 mg/dL (0.6-1.0) Estimated GFR (Cockcroft-Gault) 26.6 24.9 BUN/Creatinine Ratio 18 (6-20) Glucose Level 122 mg/dL (70-99) 129 mg/dL (70-99) Calcium Level 8.3 mg/dL (8.5-10.1) 8.4 mg/dL (8.5-10.1) Magnesium Level 1.6 mg/dL (1.8-2.4) 2.8 mg/dL (1.8-2.4) Total Bilirubin 0.9 mg/dL (0.2-1.0) Aspartate Amino Transf (AST/SGOT) 55 U/L (15-37) Alanine Aminotransferase (ALT/SGPT) 20 U/L (14-59) Alkaline Phosphatase 40 U/L (46-116) Total Protein 6.6 g/dL (6.4-8.2) Albumin 3.0 g/dL (3.4-5.0) Albumin/Globulin Ratio 0.8 (1.0-1.7) Laboratory Tests Test 09/08/19 05:15 White Blood Count 10.8 x10^3/uL (4.0-11.0) Red Blood Count 3.81 x10^6/uL (3.50-5.40) Hemoglobin 11.3 g/dL (12.0-15.5) Hematocrit 33.7 % (36.0-47.0) Mean Corpuscular Volume 88 fL (79-100) Mean Corpuscular Hemoglobin 30 pg (25-35) Mean Corpuscular Hemoglobin Concent 34 g/dL (31-37) Red Cell Distribution Width 12.7 % (11.5-14.5) Platelet Count 186 x10^3/uL (140-400) Neutrophils (%) (Auto) 70 % (31-73) Lymphocytes (%) (Auto) 19 % (24-48) Monocytes (%) (Auto) 9 % (0-9) Eosinophils (%) (Auto) 1 % (0-3) Basophils (%) (Auto) 1 % (0-3) Neutrophils # (Auto) 7.6 x10^3/uL (1.8-7.7) Lymphocytes # (Auto) 2.1 x10^3/uL (1.0-4.8) Monocytes # (Auto) 1.0 x10^3/uL (0.0-1.1) Eosinophils # (Auto) 0.1 x10^3/uL (0.0-0.7) Basophils # (Auto) 0.1 x10^3/uL (0.0-0.2) Sodium Level 140 mmol/L (136-145) Potassium Level 3.2 mmol/L (3.5-5.1) Chloride Level 100 mmol/L (98-107) Carbon Dioxide Level 31 mmol/L (21-32) Anion Gap 9 (6-14) Blood Urea Nitrogen 41 mg/dL (7-20) Creatinine 1.9 mg/dL (0.6-1.0) Estimated GFR (Cockcroft-Gault) 24.9 Glucose Level 129 mg/dL (70-99) Calcium Level 8.4 mg/dL (8.5-10.1) Magnesium Level 2.8 mg/dL (1.8-2.4) Medications Current Medications Fentanyl Citrate 30 ml @ 0 mls/hr CONT PRN IV SEE PROTOCOL Last administered on 09/05/19at 21:36; Start 09/05/19 at 21:00; Stop 09/06/19 at 17:45; Status DC Propofol 100 ml @ 0 mls/hr CONT PRN IV SEE PROTOCOL Last administered on 09/06/19at 08:40; Start 09/05/19 at 21:00; Stop 09/06/19 at 17:45; Status DC Fentanyl Citrate (Fentanyl 2ml Vial) 25 mcg PRN Q1HR PRN IV SEE COMMENTS; Start 09/05/19 at 20:45 Fentanyl Citrate (Fentanyl 2ml Vial) 50 mcg PRN Q1HR PRN IV SEE COMMENTS; Start 09/05/19 at 20:45 Chlorhexidine Gluconate (Peridex) 15 ml BID MM Last administered on 09/06/19at 08:39; Start 09/05/19 at 21:00; Stop 09/06/19 at 17:45; Status DC Artificial Tears (Artificial Tears) 1 drop PRN Q1HR PRN OU DRY EYE; Start 09/05/19 at 20:45 Famotidine (Pepcid) 20 mg BID NG Last administered on 09/06/19at 08:39; Start 09/05/19 at 21:00; Stop 09/06/19 at 09:47; Status DC Olanzapine (ZyPREXA ZYDIS) 5 mg PRN Q4HRS PRN PO AGITATION, DELIRIUM; Start 09/05/19 at 20:45 Docusate Sodium (Colace Solution) 100 mg BID NG Last administered on 09/07/19at 20:41; Start 09/05/19 at 21:00 Bisacodyl (Dulcolax Supp) 10 mg PRN DAILY PRN [place] CONSTIPATION; Start 09/05/19 at 20:45 Heparin Sodium (Porcine) (Heparin Sodium) 5,000 unit Q8HRS SQ Last administered on 09/07/19at 08:52; Start 09/05/19 at 22:00; Stop 09/07/19 at 14:20; Status DC Ondansetron HCl (Zofran) 4 mg PRN Q6HRS PRN IVP NAUSEA/VOMITING; Start 09/05/19 at 20:45 Info (Icu Electrolyte Protocol) 1 ea DAILY MC ; Start 09/06/19 at 09:00 Sodium Chloride (Normal Saline Flush) 3 ml QSHIFT PRN IV AFTER MEDS AND BLOOD DRAWS; Start 09/05/19 at 20:45 Lactulose (Lactulose) 20 gm PRN Q12HR PRN PO CONSTIPATION; Start 09/05/19 at 20 :45 Famotidine (Pepcid) 20 mg QHS NG Last administered on 09/07/19at 20:41; Start 09/06/19 at 21:00 Furosemide (Lasix) 20 mg 1X ONCE IVP Last administered on 09/06/19at 14:49; Start 09/06/19 at 14:30; Stop 09/06/19 at 14:36; Status DC Aspirin (Ecotrin) 162 mg BID PO Last administered on 09/08/19 08:47; Start 09/06/19 at 21:00 Clopidogrel Bisulfate (Plavix) 75 mg DAILY PO Last administered on 09/08/19 08:46; Start 09/07/19 at 09:00 Metoprolol Tartrate (Lopressor) 50 mg BID PO Last administered on 09/08/19 08:4 7; Start 09/06/19 at 21:00 Potassium Chloride (Klor-Con) 40 meq 1X ONCE PO Last administered on 09/07/19 08:51; Start 09/07/19 at 07:30; Stop 09/07/19 at 07:31; Status DC Ibuprofen (Motrin) 400 mg PRN Q6HRS PRN PO INFLAMMATION Last administered on 09/07/19 20:56; Start 09/07/19 at 11:45 Magnesium Sulfate 50 ml @ 25 mls/hr 1X ONCE IV Last administered on 09/07/19 12:51; Start 09/07/19 at 12:15; Stop 09/07/19 at 14:19; Status DC Magnesium Sulfate 50 ml @ 25 mls/hr 1X ONCE IV Last administered on 09/07/19at 1 3:03; Start 09/07/19 at 13:00; Stop 09/07/19 at 14:59; Status DC Heparin Sodium (Porcine) (Heparin Sodium) 5,000 unit Q12HR SQ Last administered on 09/08/19 08:56; Start 09/07/19 at 21:00 Furosemide (Lasix) 20 mg 1X ONCE IVP Last administered on 09/07/19 16:38; Start 09/07/19 at 16:15; Stop 09/07/19 at 16:16; Status DC Hydralazine HCl (Apresoline Inj) 10 mg PRN Q4HRS PRN IVP ELEVATED BP, SEE COMMENTS Last administered on 09/07/19 16:39; Start 09/07/19 at 16:15 Amlodipine Besylate (Norvasc) 10 mg DAILY PO Last administered on 09/08/19 08:47; Start 09/07/19 at 16:15 Atorvastatin Calcium (Lipitor) 40 mg QHS PO Last administered on 09/07/19at 20:41; Start 09/07/19 at 21:00 Active Scripts Active Clopidogrel (Clopidogrel Bisulfate) 75 Mg Tablet 1 Tab PO DAILY 30 Days Amlodipine Besylate 10 Mg Tablet 10 Mg PO DAILY 30 Days Metoprolol Tartrate 50 Mg Tablet 1 Tab PO BID 30 Days Reported [Potassium] 550 Mg DAILY Vitamin E (Vitamin E Mixed) 400 Unit Tablet 1 Tab PO DAILY 30 Days Triamterene-Hctz 37.5-25 Mg Cp (Triamterene/Hydrochlorothiazid) 1 Each Capsule 1 Cap PO DAILY Aspirin Ec (Aspirin) 81 Mg Tablet.dr 2 Tab PO BID Calcium (Calcium Carbonate) 500 Mg Tab.chew 500 Mg PO DAILY Vitamin C (Ascorbic Acid) 1,000 Mg Tablet 1,000 Mg PO DAILY Vitamin D3 (Cholecalciferol (Vitamin D3)) 4,000 Unit Capsule 0.5 Cap PO DAILY 30 Days Vitals/I & O Vital Sign - Last 24 Hours 09/07/19 09/07/19 09/07/19 09/07/19 10:00 11:00 12:00 12:00 Temp 99.1 99.1 Pulse 67 67 67 Resp 31 18 17 B/P (MAP) 115/58 (77) 140/53 (82) 143/69 (93) Pulse Ox 98 98 97 O2 Delivery Nasal Cannula Nasal Cannula Nasal Cannula Nasal Cannula O2 Flow Rate 4.0 4.0 4.0 4.0 09/07/19 09/07/19 09/07/19 09/07/19 13:00 14:00 15:00 15:00 Temp 98.3 98.3 Pulse 70 75 79 Resp 20 22 17 B/P (MAP) 152/63 (92) 138/65 (89) 189/75 (113) Pulse Ox 99 98 100 O2 Delivery Nasal Cannula Nasal Cannula Nasal Cannula Nasal Cannula O2 Flow Rate 4.0 4.0 4.0 4.0 09/07/19 09/07/19 09/07/19 09/07/19 16:37 16:39 19:00 19:05 Temp 98.9 98.9 Pulse 73 73 75 Resp 18 B/P (MAP) 180/78 180/78 153/65 (94) Pulse Ox 99 O2 Delivery Nasal Cannula Nasal Cannula O2 Flow Rate 3.0 3.0 09/07/19 09/07/19 09/07/19 09/08/19 20:41 22:37 23:56 02:35 Temp 98.8 98.8 98.4 98.8 98.8 98.4 Pulse 78 61 65 68 Resp 18 18 18 B/P (MAP) 153/65 144/65 (91) 144/65 (91) 134/65 (88) Pulse Ox 100 100 93 O2 Delivery Nasal Cannula Nasal Cannula Room Air O2 Flow Rate 2.0 2.0 09/08/19 09/08/19 09/08/19 09/08/19 07:00 08:00 08:47 08:47 Temp 97.9 97.9 Pulse 67 67 67 Resp 18 B/P (MAP) 160/70 (100) 160/70 160/70 Pulse Ox 90 O2 Delivery Room Air Nasal Cannula O2 Flow Rate 2.0 Intake and Output 09/07/19 09/07/19 09/08/19 15:00 23:00 07:00 Intake Total 225 ml 120 ml 520 ml Output Total 100 ml 230 ml 50 ml Balance 125 ml -110 ml 470 ml Justicifation of Admission Dx: Justifications for Admission: Justification of Admission Dx: Yes ERMA VILLALTA MD Sep 08, 2019 09:06
[2019-09-08] MEDS ORDERED: POTASSIUM CHLORIDE 20 MEQ TABLET.ER. PO ONE (09:15)
[2019-09-08 11:00] VITALS: BP 142/70
--- NOTE | 2019-09-08 11:27 | PDOC ---
ZHANNA JEFFERS CABLE SYSTEMS INSTALLER 09/08/19 1127: CARDIO Progress Notes Date and Time Date of Service 09/08/19 Time of Evaluation 1120 Subjective Subjective: No Chest Pain, No shortness of breath, No Palpitations, Other (states multiple times she wanted to go home ) Vitals Vitals Vital Signs Date Time Temp Pulse Resp B/P (MAP) Pulse Ox O2 Delivery O2 Flow Rate FiO2 09/08/19 11:00 97.9 91 18 142/70 (94) 96 Room Air 97.9 09/08/19 08:00 2.0 Weight Weight [ ] Input and Output Intake and Output Intake and Output 09/08/19 07:00 Intake Total 865 ml Output Total 480 ml Balance 385 ml Intake Oral 865 ml Output Urine Total 480 ml Laboratory Labs Laboratory Tests Test 09/08/19 05:15 White Blood Count 10.8 x10^3/uL (4.0-11.0) Red Blood Count 3.81 x10^6/uL (3.50-5.40) Hemoglobin 11.3 g/dL (12.0-15.5) Hematocrit 33.7 % (36.0-47.0) Mean Corpuscular Volume 88 fL (79-100) Mean Corpuscular Hemoglobin 30 pg (25-35) Mean Corpuscular Hemoglobin Concent 34 g/dL (31-37) Red Cell Distribution Width 12.7 % (11.5-14.5) Platelet Count 186 x10^3/uL (140-400) Neutrophils (%) (Auto) 70 % (31-73) Lymphocytes (%) (Auto) 19 % (24-48) Monocytes (%) (Auto) 9 % (0-9) Eosinophils (%) (Auto) 1 % (0-3) Basophils (%) (Auto) 1 % (0-3) Neutrophils # (Auto) 7.6 x10^3/uL (1.8-7.7) Lymphocytes # (Auto) 2.1 x10^3/uL (1.0-4.8) Monocytes # (Auto) 1.0 x10^3/uL (0.0-1.1) Eosinophils # (Auto) 0.1 x10^3/uL (0.0-0.7) Basophils # (Auto) 0.1 x10^3/uL (0.0-0.2) Sodium Level 140 mmol/L (136-145) Potassium Level 3.2 mmol/L (3.5-5.1) Chloride Level 100 mmol/L (98-107) Carbon Dioxide Level 31 mmol/L (21-32) Anion Gap 9 (6-14) Blood Urea Nitrogen 41 mg/dL (7-20) Creatinine 1.9 mg/dL (0.6-1.0) Estimated GFR (Cockcroft-Gault) 24.9 Glucose Level 129 mg/dL (70-99) Calcium Level 8.4 mg/dL (8.5-10.1) Magnesium Level 2.8 mg/dL (1.8-2.4) Physical Exam HEENT: Neck Supple W Full Motion Chest: Symmetric LUNGS: Other (diminished bases ) Heart: RRR (SR) Abdomen: Soft N/T Extremities: No Edema Neurology: alert, follow commands, confused (intermittent ) Assessment Assessment 1. Acute respiratory failure; extubated 09/05. COVID negative . 2. Acute on chronic diastolic CHF; appears compensated 3. Hypertensive urgency upon arrival; labile 4. CAD; 3VD noted per [facility] 04/21. Patient opted for medical management; which was again verified with LEIGHTON, Brian and patient. She reports he has had a good life and is ready to pass when it is her time. Not interested in any further cardiac workup or intervention. 5. NSTEMI 6. Leukocytosis, lactic acidosis 7. Hyperlipidemia 8. SUSANNAH on CKD 9. PAFIB; maintaining SR 10. Hypokalemia, replaced Recommendations Secondary prevention measures No KARINE with SUSANNAH Continue medical management as per patients desire Supportive care Plans for SNU upon discharge Justicifation of Admission Dx: Justifications for Admission: Justification of Admission Dx: Yes NYA JUDD MD 09/08/19 1845: CARDIO Progress Notes Attending Co-Sign The patient was seen and interviewed as well as examined at the bedside. The art was reviewed. The case was discussed. Agree with the plan of care. ZHANNA JEFFERS APRN Sep 08, 2019 11:27 NYA JUDD MD Sep 08, 2019 18:45
--- NOTE | 2019-09-08 13:14 | NUR ---
SS following up with discharge planning. SS reviewed pt chart and discussed with pt RN. Pt COVID19 negative and currently requiring oxygen. PT/OT recommended penitentiary unit. SS met with pt and spoke with pt's son, Brian, via phone. Pt agreeable to penitentiary unit. Pt's son requested referral be phoned and faxed to [facility], , fax [phone], due to previous experience and proximity in [place], [place]. SS phoned and faxed referral as requested. SS will await acceptance decision and will proceed accordingly with discharge planning.
[2019-09-08 15:00] VITALS: BP 156/67
[2019-09-08 19:00] VITALS: BP 162/72
--- NOTE | 2019-09-08 19:05 | NUR ---
Pt in bed assessment completed vss poc explained Pt denied pain will resume care and continue to monitor pt. Call light in reach.
[2019-09-08] MEDS: FAMOTIDINE 20 MG TABLET. NG SCH (20:32)
[2019-09-08] MEDS: ATORVASTATIN CALCIUM 40 MG TABLET. PO SCH (20:32)
[2019-09-08] MEDS: IBUPROFEN 400 MG TABLET. PO PRN (20:33)
[2019-09-08 22:51] VITALS: BP 152/70
[2019-09-09 02:19] VITALS: BP 140/64
[2019-09-09 06:20] LABS: CALCIUM 8.4 mg/dL (8.5-10.1); CREATININE 2.1 mg/dL (0.6-1.0); GFR 22.2; MAGNESIUM 2.7 mg/dL (1.8-2.4); POTASSIUM 3.6 mmol/L (3.5-5.1)
[2019-09-09 07:00] VITALS: BP 165/70
--- NOTE | 2019-09-09 08:24 | PDOC ---
PROGRESS NOTES Chief Complaint Chief Complaint A/P: acute hypoxic respiratory failure acute systolic CHF, NSTEMI - trop peak of 20 CAD, recent cardiac cath, and severe three-vessel disease. she declined in tervention htn, lipids afib, currently in sinus FEN - Cardiac PPX - heparin DNR/DNI Dispo - CVC History of Present Illness History of Present Illness Ms Edwards is an 89yo F w/ PMHx chronic heart failure, coronary artery disease with previous angiogram revealing severe 3-vessel coronary artery disease, hyperlipidemia, hypertension, CVA, osteoarthritis, AFib who was found down in grocery store parking lot and brought to [place] ED on 09/05/2019, was intubated due to severe hypoxia and unresponsiveness and transferred to [facility] once stabilized. Was COVID 19 tested at [facility]. 09/06: Seen on vent AC mode on wean trial. Patient extubated and able to communicate with no confusion. She is asking for ibuprofen. Remembers me from care in April. Asking if she can have evaluation for SNF. 1850cc UOP. 09/07: Troponin peaked at 20. Successfully extubated on 09/06, transferred to [facility]. K 3.2, Mg 2.8 today. Cr down to 1.9. She is a bit confused, very weak. therapy recommends SNF. Overnight no events. Afebrile. CR 2.1, K3.6. Her son is coming up today to discuss this, they have requested [place]. She is feeling a bit stronger. Vitals Vitals Vital Signs Date Time Temp Pulse Resp B/P (MAP) Pulse Ox O2 Delivery O2 Flow Rate FiO2 09/09/19 07:00 97.9 55 16 165/70 (101) 100 Nasal Cannula 2.0 97.9 Physical Exam General: Alert, Cooperative, Other (intubated/sedated) Heart: Regular rate Lungs: Crackles Abdomen: Soft Extremities: Other (trace LE edema ) Skin: No rashes, No breakdown Labs LABS Laboratory Tests Test 09/09/19 05:00 Sodium Level 142 mmol/L (136-145) Potassium Level 3.6 mmol/L (3.5-5.1) Chloride Level 102 mmol/L (98-107) Carbon Dioxide Level 30 mmol/L (21-32) Anion Gap 10 (6-14) Blood Urea Nitrogen 57 mg/dL (7-20) Creatinine 2.1 mg/dL (0.6-1.0) Estimated GFR (Cockcroft-Gault) 22.2 Glucose Level 116 mg/dL (70-99) Calcium Level 8.4 mg/dL (8.5-10.1) Magnesium Level 2.7 mg/dL (1.8-2.4) Comment Review of Relevant I have reviewed the following items miguel (where applicable) has been applied. Labs Laboratory Tests Test 09/08/19 05:15 09/09/19 05:00 White Blood Count 10.8 x10^3/uL (4.0-11.0) Red Blood Count 3.81 x10^6/uL (3.50-5.40) Hemoglobin 11.3 g/dL (12.0-15.5) Hematocrit 33.7 % (36.0-47.0) Mean Corpuscular Volume 88 fL (79-100) Mean Corpuscular Hemoglobin 30 pg (25-35) Mean Corpuscular Hemoglobin Concent 34 g/dL (31-37) Red Cell Distribution Width 12.7 % (11.5-14.5) Platelet Count 186 x10^3/uL (140-400) Neutrophils (%) (Auto) 70 % (31-73) Lymphocytes (%) (Auto) 19 % (24-48) Monocytes (%) (Auto) 9 % (0-9) Eosinophils (%) (Auto) 1 % (0-3) Basophils (%) (Auto) 1 % (0-3) Neutrophils # (Auto) 7.6 x10^3/uL (1.8-7.7) Lymphocytes # (Auto) 2.1 x10^3/uL (1.0-4.8) Monocytes # (Auto) 1.0 x10^3/uL (0.0-1.1) Eosinophils # (Auto) 0.1 x10^3/uL (0.0-0.7) Basophils # (Auto) 0.1 x10^3/uL (0.0-0.2) Sodium Level 140 mmol/L (136-145) 142 mmol/L (136-145) Potassium Level 3.2 mmol/L (3.5-5.1) 3.6 mmol/L (3.5-5.1) Chloride Level 100 mmol/L (98-107) 102 mmol/L (98-107) Carbon Dioxide Level 31 mmol/L (21-32) 30 mmol/L (21-32) Anion Gap 9 (6-14) 10 (6-14) Blood Urea Nitrogen 41 mg/dL (7-20) 57 mg/dL (7-20) Creatinine 1.9 mg/dL (0.6-1.0) 2.1 mg/dL (0.6-1.0) Estimated GFR (Cockcroft-Gault) 24.9 22.2 Glucose Level 129 mg/dL (70-99) 116 mg/dL (70-99) Calcium Level 8.4 mg/dL (8.5-10.1) 8.4 mg/dL (8.5-10.1) Magnesium Level 2.8 mg/dL (1.8-2.4) 2.7 mg/dL (1.8-2.4) Laboratory Tests Test 09/09/19 05:00 Sodium Level 142 mmol/L (136-145) Potassium Level 3.6 mmol/L (3.5-5.1) Chloride Level 102 mmol/L (98-107) Carbon Dioxide Level 30 mmol/L (21-32) Anion Gap 10 (6-14) Blood Urea Nitrogen 57 mg/dL (7-20) Creatinine 2.1 mg/dL (0.6-1.0) Estimated GFR (Cockcroft-Gault) 22.2 Glucose Level 116 mg/dL (70-99) Calcium Level 8.4 mg/dL (8.5-10.1) Magnesium Level 2.7 mg/dL (1.8-2.4) Medications Current Medications Fentanyl Citrate 30 ml @ 0 mls/hr CONT PRN IV SEE PROTOCOL Last administered on 09/05/19at 21:36; Start 09/05/19 at 21:00; Stop 09/06/19 at 17:45; Status DC Propofol 100 ml @ 0 mls/hr CONT PRN IV SEE PROTOCOL Last administered on 09/06/19at 08:40; Start 09/05/19 at 21:00; Stop 09/06/19 at 17:45; Status DC Fentanyl Citrate (Fentanyl 2ml Vial) 25 mcg PRN Q1HR PRN IV SEE COMMENTS; Start 09/05/19 at 20:45 Fentanyl Citrate (Fentanyl 2ml Vial) 50 mcg PRN Q1HR PRN IV SEE COMMENTS; Start 09/05/19 at 20:45 Chlorhexidine Gluconate (Peridex) 15 ml BID MM Last administered on 09/06/19at 08:39; Start 09/05/19 at 21:00; Stop 09/06/19 at 17:45; Status DC Artificial Tears (Artificial Tears) 1 drop PRN Q1HR PRN OU DRY EYE; Start 09/05/19 at 20:45 Famotidine (Pepcid) 20 mg BID NG Last administered on 09/06/19at 08:39; Start 09/05/19 at 21:00; Stop 09/06/19 at 09:47; Status DC Olanzapine (ZyPREXA ZYDIS) 5 mg PRN Q4HRS PRN PO AGITATION, DELIRIUM; Start 09/05/19 at 20:45 Docusate Sodium (Colace Solution) 100 mg BID NG Last administered on 09/07/19at 20:41; Start 09/05/19 at 21:00 Bisacodyl (Dulcolax Supp) 10 mg PRN DAILY PRN AK CONSTIPATION; Start 09/05/19 at 20:45 Heparin Sodium (Porcine) (Heparin Sodium) 5,000 unit Q8HRS SQ Last administered on 09/07/19 08:52; Start 09/05/19 at 22:00; Stop 09/07/19 at 14:20; Status DC Ondansetron HCl (Zofran) 4 mg PRN Q6HRS PRN IVP NAUSEA/VOMITING; Start 09/05/19 at 20:45 Info (Icu Electrolyte Protocol) 1 ea DAILY MC Last administered on 09/08/19at 09:00; Start 09/06/19 at 09:00 Sodium Chloride (Normal Saline Flush) 3 ml QSHIFT PRN IV AFTER MEDS AND BLOOD DRAWS; Start 09/05/19 at 20:45 Lactulose (Lactulose) 20 gm PRN Q12HR PRN PO CONSTIPATION; Start 09/05/19 at 20:45 Famotidine (Pepcid) 20 mg QHS NG Last administered on 09/08/19at 20:32; Start 09/06/19 at 21:00 Furosemide (Lasix) 20 mg 1X ONCE IVP Last administered on 09/06/19 14:49; Start 09/06/19 at 14:30; Stop 09/06/19 at 14:36; Status DC Aspirin (Ecotrin) 162 mg BID PO Last administered on 09/08/19 20:33; Start 09/06/19 at 21:00 Clopidogrel Bisulfate (Plavix) 75 mg DAILY PO Last administered on 09/08/19 08:46; Start 09/07/19 at 09:00 Metoprolol Tartrate (Lopressor) 50 mg BID PO Last administered on 09/08/19 20:32; Start 09/06/19 at 21:00 Potassium Chloride (Klor-Con) 40 meq 1X ONCE PO Last administered on 09/07/19 08:51; Start 09/07/19 at 07:30; Stop 09/07/19 at 07:31; Status DC Ibuprofen (Motrin) 400 mg PRN Q6HRS PRN PO INFLAMMATION Last administered on 09/08/19 20:33; Start 09/07/19 at 11:45 Magnesium Sulfate 50 ml @ 25 mls/hr 1X ONCE IV Last administered on 09/07/19 12:51; Start 09/07/19 at 12:15; Stop 09/07/19 at 14:19; Status DC Magnesium Sulfate 50 ml @ 25 mls/hr 1X ONCE IV Last administered on 09/07/19 13:03; Start 09/07/19 at 13:00; Stop 09/07/19 at 14:59; Status DC Heparin Sodium (Porcine) (Heparin Sodium) 5,000 unit Q12HR SQ Last administered on 09/08/19 20:39; Start 09/07/19 at 21:00 Furosemide (Lasix) 20 mg 1X ONCE IVP Last administered on 09/07/19 16:38; Start 09/07/19 at 16:15; Stop 09/07/19 at 16:16; Status DC Hydralazine HCl (Apresoline Inj) 10 mg PRN Q4HRS PRN IVP ELEVATED BP, SEE C OMMENTS Last administered on 09/07/19 16:39; Start 09/07/19 at 16:15 Amlodipine Besylate (Norvasc) 10 mg DAILY PO Last administered on 09/08/19 08:47; Start 09/07/19 at 16:15 Atorvastatin Calcium (Lipitor) 40 mg QHS PO Last administered on 09/08/19at 20:32; Start 09/07/19 at 21:00 Potassium Chloride (Klor-Con) 40 meq 1X ONCE PO Last administered on 09/08/19at 11:30; Start 09/08/19 at 09:15; Stop 09/08/19 at 09:16; Status DC Active Scripts Active Clopidogrel (Clopidogrel Bisulfate) 75 Mg Tablet 1 Tab PO DAILY 30 Days Amlodipine Besylate 10 Mg Tablet 10 Mg PO DAILY 30 Days Metoprolol Tartrate 50 Mg Tablet 1 Tab PO BID 30 Days Reported [Potassium] 550 Mg DAILY Vitamin E (Vitamin E Mixed) 400 Unit Tablet 1 Tab PO DAILY 30 Days Triamterene-Hctz 37.5-25 Mg Cp (Triamterene/Hydrochlorothiazid) 1 Each Capsule 1 Cap PO DAILY Aspirin Ec (Aspirin) 81 Mg Tablet.dr 2 Tab PO BID Calcium (Calcium Carbonate) 500 Mg Tab.chew 500 Mg PO DAILY Vitamin C (Ascorbic Acid) 1,000 Mg Tablet 1,000 Mg PO DAILY Vitamin D3 (Cholecalciferol (Vitamin D3)) 4,000 Unit Capsule 0.5 Cap PO DAILY 30 Days Vitals/I & O Vital Sign - Last 24 Hours 09/08/19 09/08/19 09/08/19 09/08/19 08:47 08:47 11:00 15:00 Temp 97.9 98.5 97.9 98.5 Pulse 67 67 91 95 Resp 18 18 B/P (MAP) 160/70 160/70 142/70 (94) 156/67 (96) Pulse Ox 96 96 O2 Delivery Room Air Room Air 09/08/19 09/08/19 09/08/19 09/08/19 19:00 19:05 20:32 22:51 Temp 98.3 98.4 98.3 98.4 Pulse 70 70 60 Resp 18 18 B/P (MAP) 162/72 (102) 162/72 152/70 (97) Pulse Ox 98 97 O2 Delivery Nasal Cannula Nasal Cannula Nasal Cannula O2 Flow Rate 2.0 2.0 2.0 09/09/19 09/09/19 02:19 07:00 Temp 98.1 97.9 98.1 97.9 Pulse 58 55 Resp 16 16 B/P (MAP) 140/64 (89) 165/70 (101) Pulse Ox 98 100 O2 Delivery Nasal Cannula Nasal Cannula O2 Flow Rate 2.0 2.0 Intake and Output 09/08/19 09/08/19 09/09/19 15:00 23:00 07:00 Intake Total 350 ml 210 ml 200 ml Output Total 100 ml 100 ml 300 ml Balance 250 ml 110 ml -100 ml Justicifation of Admission Dx: Justifications for Admission: Justification of Admission Dx: Yes ERMA VILLALTA MD Sep 09, 2019 08:24
[2019-09-09] MEDS ORDERED: POTASSIUM CHLORIDE 20 MEQ TABLET.ER. PO ONE (08:30)
--- NOTE | 2019-09-09 08:41 | PDOC ---
PULMONARY PROGRESS NOTES Subjective Patient feels better today not short of air Vitals Vital Signs Date Time Temp Pulse Resp B/P (MAP) Pulse Ox O2 Delivery O2 Flow Rate FiO2 09/09/19 07:00 97.9 55 16 165/70 (101) 100 Nasal Cannula 2.0 97.9 ROS: No Nausea, No Chest Pain, No Abdominal Pain, No Increase Cough Lungs: Crackles Cardiovascular: S1, S2 Abdomen: Soft Neuro Exam: Alert Extremities: No Edema Skin: Warm Labs Laboratory Tests Test 09/08/19 05:15 09/09/19 05:00 White Blood Count 10.8 x10^3/uL (4.0-11.0) Red Blood Count 3.81 x10^6/uL (3.50-5.40) Hemoglobin 11.3 g/dL (12.0-15.5) Hematocrit 33.7 % (36.0-47.0) Mean Corpuscular Volume 88 fL (79-100) Mean Corpuscular Hemoglobin 30 pg (25-35) Mean Corpuscular Hemoglobin Concent 34 g/dL (31-37) Red Cell Distribution Width 12.7 % (11.5-14.5) Platelet Count 186 x10^3/uL (140-400) Neutrophils (%) (Auto) 70 % (31-73) Lymphocytes (%) (Auto) 19 % (24-48) Monocytes (%) (Auto) 9 % (0-9) Eosinophils (%) (Auto) 1 % (0-3) Basophils (%) (Auto) 1 % (0-3) Neutrophils # (Auto) 7.6 x10^3/uL (1.8-7.7) Lymphocytes # (Auto) 2.1 x10^3/uL (1.0-4.8) Monocytes # (Auto) 1.0 x10^3/uL (0.0-1.1) Eosinophils # (Auto) 0.1 x10^3/uL (0.0-0.7) Basophils # (Auto) 0.1 x10^3/uL (0.0-0.2) Sodium Level 140 mmol/L (136-145) 142 mmol/L (136-145) Potassium Level 3.2 mmol/L (3.5-5.1) 3.6 mmol/L (3.5-5.1) Chloride Level 100 mmol/L (98-107) 102 mmol/L (98-107) Carbon Dioxide Level 31 mmol/L (21-32) 30 mmol/L (21-32) Anion Gap 9 (6-14) 10 (6-14) Blood Urea Nitrogen 41 mg/dL (7-20) 57 mg/dL (7-20) Creatinine 1.9 mg/dL (0.6-1.0) 2.1 mg/dL (0.6-1.0) Estimated GFR (Cockcroft-Gault) 24.9 22.2 Glucose Level 129 mg/dL (70-99) 116 mg/dL (70-99) Calcium Level 8.4 mg/dL (8.5-10.1) 8.4 mg/dL (8.5-10.1) Magnesium Level 2.8 mg/dL (1.8-2.4) 2.7 mg/dL (1.8-2.4) Laboratory Tests Test 09/09/19 05:00 Sodium Level 142 mmol/L (136-145) Potassium Level 3.6 mmol/L (3.5-5.1) Chloride Level 102 mmol/L (98-107) Carbon Dioxide Level 30 mmol/L (21-32) Anion Gap 10 (6-14) Blood Urea Nitrogen 57 mg/dL (7-20) Creatinine 2.1 mg/dL (0.6-1.0) Estimated GFR (Cockcroft-Gault) 22.2 Glucose Level 116 mg/dL (70-99) Calcium Level 8.4 mg/dL (8.5-10.1) Magnesium Level 2.7 mg/dL (1.8-2.4) Medications Active Scripts Medications Dose Route/Sig Max Daily Dose Days Date Category Clopidogrel (Clopidogrel Bisulfate) 75 Mg Tablet 1 Tab PO DAILY 30 04/23/19 Rx Amlodipine Besylate 10 Mg Tablet 10 Mg PO DAILY 30 04/23/19 Rx Metoprolol Tartrate 50 Mg Tablet 1 Tab PO BID 30 04/23/19 Rx [Potassium] 550 Mg DAILY 04/22/19 Reported Vitamin E (Vitamin E Mixed) 400 Unit Tablet 1 Tab PO DAILY 30 04/22/19 Reported Triamterene-Hctz 37.5-25 Mg Cp (Triamterene/Hydrochlorothiazid) 1 Each Capsule 1 Cap PO DAILY 04/22/19 Reported Aspirin Ec (Aspirin) 81 Mg Tablet.dr 2 Tab PO BID 04/22/19 Reported Calcium (Calcium Carbonate) 500 Mg Tab.chew 500 Mg PO DAILY 04/21/19 Reported Vitamin C (Ascorbic Acid) 1,000 Mg Tablet 1,000 Mg PO DAILY 04/21/19 Reported Vitamin D3 (Cholecalciferol (Vitamin D3)) 4,000 Unit Capsule 0.5 Cap PO DAILY 30 04/21/19 Reported Impression . IMPRESSION: 1. Acute hypoxemic respiratory failure. 2. [id number] systolic and diastolic heart failure. 3. Coronary artery disease with severe coronary artery bypass grafting. 4. Hypertension. 5. Chronic atrial fibrillation. 6. Leukocytosis. 7. Elevated troponin level, possible non-ST segment elevation myocardial infarction. Plan . Patient better today okay to discharge Extubated 09/05 We will continue support medical management Up to chair Social service to work on possible transfer to rehab Patient states that she does not take a diuretic at home 09/06 Discussed advanced care planning with patient, she does not wish to be intubated does not wish to be resuscitated wishes to be medically managed, she does not want any aggressive cardiac procedures. Will honor her wishes and proceed with DO NOT RESUSCITATE DO NOT INTUBATE orders. Continue oxygen supplementation Continue diuresis Continue cardiac meds Transfer out of the intensive care unit CATE SMART MD Sep 09, 2019 08:41
[2019-09-09] MEDS: ELECTROLYTE (ICU) PROTOCOL. MC SCH (09:00)
[2019-09-09] MEDS ORDERED: ATOR40TA59 PO (10:52)
[2019-09-09] MEDS ORDERED: [UNRECOGNIZED DRUG - CODE] PO (10:52)
[2019-09-09] MEDS ORDERED: FAMO20TA5 NG (10:52)
[2019-09-09] MEDS ORDERED: OLAN5TAB7 PO (10:52)
--- NOTE | 2019-09-09 10:52 | SNU/HH DC ---
DISCHARGE ORDERS DISCHARGE INFORMATION: DISCHARGE DATE: Sep 09, 2019 FINAL DIAGNOSIS NSTEMI, Acute CHF CONDITION ON DISCHARGE: Stable CODE STATUS: Code Status: DNR/DNI MCC: SNF STAY <30 DAYS: Yes POST DISCHARGE ORDERS: ACTIVITY ORDERS: No restrictions WEIGHT BEARING STATUS: As tolerated DIET AFTER DISCHARGE: Cardiac CHECKS AFTER DISCHARGE: CHECKS AFTER DISCHARGE: Check blood press - daily TREATMENT/EQUIPMENT ORDERS: ADAPTIVE EQUIPMENT NEEDED: Cane RESPIRATORY EQUIPMENT NEEDED: Oxygen Physical Therapy For: Evalulation/Treatment Occupational Therapy For: Evaluation/Treatment DISCHARGE MEDICATIONS: Home Meds Active Scripts Psyllium Seed (With Sugar) (SM FIBER SMOOTH TEXTURE PWD) 575 Gm Powder, 575 GM PO QHS for contipation for 30 Days, #30 MISC Prov:ERMA VILLALTA MD 09/09/19 Famotidine (FAMOTIDINE) 20 Mg Tablet, 20 MG NG QHS for GERD for 30 Days, #30 TAB Prov:ERMA VILLALTA MD 09/09/19 Olanzapine (OLANZAPINE ODT) 5 Mg Tab.rapdis, 5 MG PO PRN Q4HRS PRN for AGITATION, DELIRIUM for 30 Days, #60 TAB 3 Refills Prov:ERMA VILLALTA MD 09/09/19 Atorvastatin Calcium (ATORVASTATIN CALCIUM) 40 Mg Tablet, 40 MG PO QHS for HLD, CAD for 90 Days, #90 TAB 3 Refills Prov:ERMA VILLALTA MD 09/09/19 Clopidogrel Bisulfate (CLOPIDOGREL) 75 Mg Tablet, 1 TAB PO DAILY for cad for 30 Days, #30 TAB 5 Refills Prov:CHUY JAVIER MD 04/23/19 Amlodipine Besylate (AMLODIPINE BESYLATE) 10 Mg Tablet, 10 MG PO DAILY for htn for 30 Days, #30 TAB 5 Refills Prov:CHUY JAVIER MD 04/23/19 Metoprolol Tartrate (METOPROLOL TARTRATE) 50 Mg Tablet, 1 TAB PO BID for htn for 30 Days, #60 TAB 5 Refills Prov:CHUY JAVIER MD 04/23/19 Reported Medications [Potassium] No Conflict Check, 550 MG DAILY for SUPPLEMENT 04/22/19 Vitamin E Mixed (VITAMIN E) 400 Unit Tablet, 1 TAB PO DAILY for SUPPLEMENT for 30 Days, #30 TAB 0 Refills 04/22/19 Aspirin (ASPIRIN EC) 81 Mg Tablet.dr, 2 TAB PO BID for HEART HEALTH, #30 TAB 3 Refills 04/22/19 Calcium Carbonate (CALCIUM) 500 Mg Tab.chew, 500 MG PO DAILY for vitamin, TAB.CHEW 04/21/19 Ascorbic Acid (VITAMIN C) 1,000 Mg Tablet, 1000 MG PO DAILY for vitamin, TAB 04/21/19 Cholecalciferol (Vitamin D3) (VITAMIN D3) 4,000 Unit Capsule, 0.5 CAP PO DAILY for vitamin for 30 Days, #15 CAP 0 Refills 04/21/19 Discontinued Reported Medications Triamterene/Hydrochlorothiazid (TRIAMTERENE-HCTZ 37.5-25 MG CP) 1 Each Capsule, 1 CAP PO DAILY for HTN, #30 CAP 5 Refills 04/22/19 ERMA VILLALTA MD Sep 09, 2019 10:52
[2019-09-09 10:54] VITALS: BP 180/78
[2019-09-09] MEDS: amLODIPine BESYLATE 10 MG TABLET PO SCH (10:57)
[2019-09-09] MEDS: CLOPIDOGREL BISULFATE 75 MG TABLET PO SCH (10:57)
[2019-09-09] MEDS: METOPROLOL TART IMMED RELEASE 50 MG TABLET. PO SCH (10:57)
[2019-09-09] MEDS: ASPIRIN ENTERIC COATED 81 MG TABLET.DR. PO SCH (10:57)
[2019-09-09] MEDS: DOCUSATE 100 MG/10 ML SOLUTION. NG SCH (10:57)
[2019-09-09] MEDS: HEPARIN for SUB-Q USE 5,000 UNIT/ML VIAL. SQ SCH (11:22)
--- NOTE | 2019-09-09 13:02 | PDOC3 ---
Discharge Summary Visit Information Date of Admission: Sep 05, 2019 Date of Discharge: Sep 09, 2019 Admitting Diagnosis: Acute hypoxic respiratory failure Final Diagnosis NSTEMI, Hypoxic respiratory failure Brief Hospital Course Allergies Allergies Coded Allergies Type Severity Reaction Last Updated Verified morphine Allergy Intermediate 09/06/19 Yes codeine Adverse Reaction Intermediate Nausea 04/21/19 Yes Vital Signs Vital Signs Date Time Temp Pulse Resp B/P (MAP) Pulse Ox O2 Delivery O2 Flow Rate FiO2 09/09/19 10:57 63 180/78 09/09/19 10:54 97.8 16 96 Nasal Cannula 2.0 97.8 Lab Results Laboratory Tests Test 09/08/19 05:15 09/09/19 05:00 White Blood Count 10.8 x10^3/uL (4.0-11.0) Red Blood Count 3.81 x10^6/uL (3.50-5.40) Hemoglobin 11.3 g/dL (12.0-15.5) Hematocrit 33.7 % (36.0-47.0) Mean Corpuscular Volume 88 fL (79-100) Mean Corpuscular Hemoglobin 30 pg (25-35) Mean Corpuscular Hemoglobin Concent 34 g/dL (31-37) Red Cell Distribution Width 12.7 % (11.5-14.5) Platelet Count 186 x10^3/uL (140-400) Neutrophils (%) (Auto) 70 % (31-73) Lymphocytes (%) (Auto) 19 % (24-48) Monocytes (%) (Auto) 9 % (0-9) Eosinophils (%) (Auto) 1 % (0-3) Basophils (%) (Auto) 1 % (0-3) Neutrophils # (Auto) 7.6 x10^3/uL (1.8-7.7) Lymphocytes # (Auto) 2.1 x10^3/uL (1.0-4.8) Monocytes # (Auto) 1.0 x10^3/uL (0.0-1.1) Eosinophils # (Auto) 0.1 x10^3/uL (0.0-0.7) Basophils # (Auto) 0.1 x10^3/uL (0.0-0.2) Sodium Level 140 mmol/L (136-145) 142 mmol/L (136-145) Potassium Level 3.2 mmol/L (3.5-5.1) 3.6 mmol/L (3.5-5.1) Chloride Level 100 mmol/L (98-107) 102 mmol/L (98-107) Carbon Dioxide Level 31 mmol/L (21-32) 30 mmol/L (21-32) Anion Gap 9 (6-14) 10 (6-14) Blood Urea Nitrogen 41 mg/dL (7-20) 57 mg/dL (7-20) Creatinine 1.9 mg/dL (0.6-1.0) 2.1 mg/dL (0.6-1.0) Estimated GFR (Cockcroft-Gault) 24.9 22.2 Glucose Level 129 mg/dL (70-99) 116 mg/dL (70-99) Calcium Level 8.4 mg/dL (8.5-10.1) 8.4 mg/dL (8.5-10.1) Magnesium Level 2.8 mg/dL (1.8-2.4) 2.7 mg/dL (1.8-2.4) Laboratory Tests Test 09/09/19 05:00 Sodium Level 142 mmol/L (136-145) Potassium Level 3.6 mmol/L (3.5-5.1) Chloride Level 102 mmol/L (98-107) Carbon Dioxide Level 30 mmol/L (21-32) Anion Gap 10 (6-14) Blood Urea Nitrogen 57 mg/dL (7-20) Creatinine 2.1 mg/dL (0.6-1.0) Estimated GFR (Cockcroft-Gault) 22.2 Glucose Level 116 mg/dL (70-99) Calcium Level 8.4 mg/dL (8.5-10.1) Magnesium Level 2.7 mg/dL (1.8-2.4) Brief Hospital Course Ms Edwards is an 89yo F w/ PMHx chronic heart failure, coronary artery disease with previous angiogram revealing severe 3-vessel coronary artery disease, hyperlipidemia, hypertension, CVA, osteoarthritis, AFib who was found down in grocery store parking lot and brought to [place] ED on 09/05/2019, was intubated due to severe hypoxia and unresponsiveness and transferred to [facility] once stabilized. Was COVID 19 tested at [facility]. 09/06: Seen on vent AC mode on wean trial. Patient extubated and able to communicate with no confusion. She is asking for ibuprofen. Remembers me from care in April. Asking if she can have evaluation for SNF. 1850cc UOP. 09/07: Troponin peaked at 20. Successfully extubated on 09/06, transferred to [facility]. K 3.2, Mg 2.8 today. Cr down to 1.9. She is a bit confused, very weak. therapy recommends SNF. Overnight no events. Afebrile. CR 2.1, K3.6. Her son is coming up today to discuss this, they have requested [place]. She is feeling a bit stronger. Consults: Pulm, Cardiology Problem List: acute hypoxic respiratory failure acute systolic CHF, NSTEMI - trop peak of 20 CAD, recent cardiac cath, and severe three-vessel disease. she declined intervention htn, lipids afib, currently in sinus Greater than 30 minutes spent on d/c Discharge Information Condition at Discharge: Improved Follow Up: Weeks (1) Disposition/Orders: D/C to Another Facility ([facility]) Scheduled Amlodipine Besylate (Amlodipine Besylate) 10 Mg Tablet, 10 MG PO DAILY for htn for 30 Days, #30 Ref 5 Prescribed by: CONCEPCION VERA on 04/23/19 1152 Last Action: Continued on 09/07/19 1608 by TEJ PRESTON RN Ascorbic Acid (Vitamin C) 1,000 Mg Tablet, 1,000 MG PO DAILY for vitamin, (Reported) Entered as Reported by: ESTELLE SALAZAR on 04/21/19 1211 Aspirin (Aspirin Ec) 81 Mg Tablet.dr, 2 TAB PO BID for HEART HEALTH, #30 Ref 3 (Reported) Entered as Reported by: EDGARDO ZUNIGA on 04/22/19 0839 Last Action: Continued on 09/06/19 1434 by ZHANNA JEFFERS APRN Atorvastatin Calcium (Atorvastatin Calcium) 40 Mg Tablet, 40 MG PO QHS for HLD, CAD for 90 Days, #90 Ref 3 Prescribed by: ERMA VILLALTA MD on 09/09/19 1052 Calcium Carbonate (Calcium) 500 Mg Tab.chew, 500 MG PO DAILY for vitamin, (Reported) Entered as Reported by: ESTELLE SALAZAR on 04/21/19 1211 Cholecalciferol (Vitamin D3) (Vitamin D3) 4,000 Unit Capsule, 0.5 CAP PO DAILY for vitamin for 30 Days, #15 Ref 0 (Reported) Entered as Reported by: ESTELLE SALAZAR on 04/21/19 1211 Clopidogrel Bisulfate (Clopidogrel) 75 Mg Tablet, 1 TAB PO DAILY for cad for 30 Days, #30 Ref 5 Prescribed by: CONCEPCION VERA on 04/23/191151 Last Action: Continued on 09/06/191433 by ZHANNA JEFFERS APRN Famotidine (Famotidine) 20 Mg Tablet, 20 MG NG QHS for GERD for 30 Days, #30 Prescribed by: ERMA VILLALTA MD on 09/09/19 1052 Metoprolol Tartrate (Metoprolol Tartrate) 50 Mg Tablet, 1 TAB PO BID for htn for 30 Days, #60 Ref 5 Prescribed by: CONCEPCION VERA on 04/23/191151 Last Action: Continued on 09/06/191433 by ZHANNA JEFFERS APRN Psyllium Seed (With Sugar) (Sm Fiber Smooth Texture Pwd) 575 Gm Powder, 575 GM PO QHS for contipation for 30 Days, #30 Prescribed by: ERMA VILLALTA MD on 09/09/19 1052 Vitamin E Mixed (Vitamin E) 400 Unit Tablet, 1 TAB PO DAILY for SUPPLEMENT for 30 Days, #30 Ref 0 (Reported) Entered as Reported by: EDGARDO ZUNIGA on 04/22/19 0839 [Potassium] , 550 MG DAILY for SUPPLEMENT, (Reported) Entered as Reported by: EDGARDO ZUNIGA on 04/22/19 0839 Scheduled PRN Olanzapine (Olanzapine Odt) 5 Mg Tab.rapdis, 5 MG PO PRN Q4HRS PRN for AGITATION, DELIRIUM for 30 Days, #60 Ref 3 Prescribed by: ERMA VILLALTA MD on 09/09/19 1052 Discontinued Medications Triamterene/Hydrochlorothiazid (Triamterene-Hctz 37.5-25 Mg Cp) 1 Each Capsule, 1 CAP PO DAILY for HTN, #30 Ref 5 (Reported) Entered as Reported by: EDGARDO ZUNIGA on 04/22/19 0839 Last Action: HELD on 09/06/191433 by ZHANNA AURY, [employer] Justicifation of Admission Dx: Justifications for Admission: Justification of Admission Dx: Yes ERMA VILLALTA MD Sep 09, 2019 13:02
[2019-09-09 15:00] VITALS: BP 161/70
--- NOTE | 2019-09-09 17:05 | NUR ---
Discharge Note: NICK BHAKTA Discharge instructions and discharge home medications reviewed with Other facility and a copy given. All questions have been answered and understanding verbalized.
--- NOTE | 2019-09-09 18:35 | NUR ---
Pt had suitcase, purse, and cane at time of DC. Belongings brought in by [facility].
== END 2019-09-09 16:25 | DRG 208 ==
LOC: UNDOADMIN 18:36 → 1 WEST ICU 18:36 → 2 SOUTH 09-07 15:45
PROVIDERS: ADMIT Internal Medicine; ATTEND Internal Medicine
PROC: 5A1945Z Respiratory Ventilation, 24-96 Consecutive Hours (ICD-10-PCS; principal; 2019-09-05)
DX: J96.01 Acute respiratory failure with hypoxia (principal); I50.43 Acute on chronic combined systolic (congestive) and diastolic (congestive) heart failure; I21.4 Non-ST elevation (NSTEMI) myocardial infarction; N17.9 Acute kidney failure, unspecified; E87.2 Acidosis; I13.0 Hypertensive heart and chronic kidney disease with heart failure and stage 1 through stage 4 chronic kidney disease, or unspecified chronic kidney disease; I48.20 Chronic atrial fibrillation, unspecified; E87.3 Alkalosis; D72.829 Elevated white blood cell count, unspecified; E78.5 Hyperlipidemia, unspecified; E83.42 Hypomagnesemia; E87.6 Hypokalemia; I16.0 Hypertensive urgency; I25.10 Atherosclerotic heart disease of native coronary artery without angina pectoris; I48.0 Paroxysmal atrial fibrillation; N18.9 Chronic kidney disease, unspecified; Z20.828 Contact with and (suspected) exposure to other viral communicable diseases; Z66 Do not resuscitate; M19.90 Unspecified osteoarthritis, unspecified site; Z86.73 Personal history of transient ischemic attack (TIA), and cerebral infarction without residual deficits; Z95.1 Presence of aortocoronary bypass graft; Z79.899 Other long term (current) drug therapy; Z88.5 Allergy status to narcotic agent
CPT/HCPCS: 36415; 36600; 80048; 80053; 82805; 83735; 84484; 85025; 94002; 94003; J0360; J1644; J1940; J2704; J3475; 97530-GP; 97535-GO; G0378